=== PATIENT | female | born 1960 | race Caucasian/White ===

== ENCOUNTER 2020-10-02 14:18 | Outpatient (REF) | payer OTHER, SELFPAY | END 2020-10-02 14:19 | disposition home or self-care (01) | LOC: HO.LAB 14:18 | PROVIDERS: PCP Nurse Practitioner Family; Visit Provider Internal Medicine | DX: Z20.822 Contact with and (suspected) exposure to COVID-19 (principal) | CPT/HCPCS: C9803; U0003; U0005 ==

== ENCOUNTER 2020-12-05 12:36 | Outpatient (REF) | payer OTHER, SELFPAY ==
[2020-12-05 14:05] LABS: Appearance Urine HAZY; Color Urine YELLOW; Glucose Urine UA 100 MG/DL (NEG); Leukocyte Esterase Urine NEG (NEG); Nitrite Urine NEG (NEG); Specific Gravity - Urine >= 1.030 (1.005-1.025); UACC Culture Trigger NO; Urine Blood 3+ (NEG); Urine Ketones 5 MG/DL (NEG); Urine Protein TRACE MG/DL (NEG-TRACE)
[2020-12-05 14:56] LABS: Squamous Epithelial Cell Urine TRACE /LPF
[2020-12-05 15:00] LABS: Bacteria Urine TRACE /LPF; Calcium Oxalate Crystals Urine TRACE /LPF; WBC Urine 0-2 /HPF (0-4)
== END 2020-12-05 12:37 | disposition home or self-care (01) ==
LOC: HO.HMGCLDS 12:36
PROVIDERS: PCP Nurse Practitioner Family; Visit Provider Nurse Practitioner Family
DX: R35.0 Frequency of micturition (principal)
CPT/HCPCS: 81001

== ENCOUNTER 2023-10-20 15:49 | Outpatient (AMB) | payer OTHER, SELFPAY ==
--- NOTE | 2023-10-20 15:52 | A.OFFPC_ITS ---
Vital Signs 10/20/23 16:13 Height 5 ft 1 in Weight 163 lb BMI 30.8 BP 142/90 H Blood Pressure Location Rt brachial Position Sitting Pulse 110 H Pulse Source Pulse Oximeter Pulse Oximetry (%) 97 Oxygen Delivery Method Room Air Intake Visit Reasons: OUTBOUND SALES SPECIALIST, requests a physical - see comment Intake Note: pt is here for new patient, establish care. requesting a physical Inspector Returned Materials Required: No Accompanied by: Self / Same As Patient Allergies Iodinated Contrast Media [IV CONTRAST] Allergy (Unknown, Verified 10/20/23 17:22) ANAPHYLAXIS morphine [MORPHINE] Allergy (Unknown, Verified 10/20/23 17:22) SEVERE ITCHING, hives contrast dye Allergy (Unknown, Uncoded 10/20/23 17:22) anaphylaxis ct dye Allergy (Unknown, Uncoded 10/20/23 17:22) rash Morphine Allergy (Unknown, Uncoded 10/20/23 17:22) itching Medication List - Last Reconciled 10/20/23 by DUONG Guerrero- alpha lipoic acid 200 mg PO DAILY cholecalciferol (vitamin D3) 25 mcg PO DAILY dapagliflozin propanediol (Farxiga) 5 mg PO DAILY 30 days flaxseed oil 1,000 mg PO DAILY multivitamin 1 tab PO DAILY omeprazole 20 mg PO DAILY semaglutide (Ozempic) 0.25 mg (0.368 mL) subcut QWEEK Tobacco use date assessed: 10/20/23 Dental Screening Dental Screen Date: 10/20/23 Did you have a dental visit in the last 12 months?: Yes Did you have a dental problem in the last 6 months where you did not have access to dental care?: No Was dental information given to patient?: Patient has dentist HPI OUTBOUND SALES SPECIALIST, requests a physical - see comment HPI Details New pt is here for a PE. Will order labs. Due for mammo, will order. Due for colon screen, was due in 2021, will refer to GI. Pt is a newly diagnosed diabetic. A1C in office today is 13.1. Due for microalbumin, will order. Denies polyuria, polydipsia, does report neuropathy. Pt denies any signs and symptoms of hypoglycemia and does know how to correct it. Will start farxiga 5mg and ozempic 0.25mg. Will also refer to endo. Due for eye exam, will refer. Will send meter and supplies, educated on bid testing. Pt has been smoking up to a pack a day since age 14. Will refer for low-dose CT. Will also start ARB and statin. 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[employer] Current occupational exposures/hazards: No Cognitive needs: No Hearing needs: No Vision needs: Yes Questionnaire PHQ-9 Over the last 2 weeks, how often have you been bothered by any of the following problems? 1. Little interest or pleasure in doing things: several days 2. Feeling down, depressed, or hopeless: several days 3. Trouble falling or staying asleep, or sleeping too much: more than half the days 4. Feeling tired or having little energy: several days 5. Poor appetite or overeating: not at all 6. Feeling bad about yourself - or that you are a failure or have let yourself or your family down: not at all 7. Trouble concentrating on things, such as reading the newspaper or watching television: not at all 8. Moving or speaking so slowly that other people could have noticed. Or the opposite - being so fidgety or restless that you have been moving around a lot more than usual: not at all 9. Thoughts that you would be better off or of hurting yourself in some way: not at all Total score: 5 Depression Screening Interpretation: Negative Depression Screening Done: Yes 12159 - PHQ-9 Billing: Yes Source: Developed by Drs. Rei Meier, My Barros, Puma Pichardo and colleagues, with an educational janet from [employer]. Thrive Questionnaire Date Thrive assessed: 10/20/23 I am a: Patient What is your living situation today?: I have a steady place to live Within the past 12 months, did the food you bought not last and you didn't have the money to get more?: Never true Within the past 12 months, did you worry whether your food would run out before you got money to buy more?: Never true Do you have trouble paying for medicines?: No Do you have trouble getting transportation to medical appointments?: No Do you have trouble paying your heating and electricity bill?: No Do you have trouble taking care of your child, family member or friend?: No Do you have trouble with day-to-day activities such as bathing, preparing meals, shopping, managing finances, etc.?: No Are you currently unemployed and looking for a job?: No Are you interested in more education?: No Please select the resources that you would like help with: None Currently or been in a relationship where the following occur: No concerns reported THRIVE Score: 0 AUDIT C Alcohol Use Questionnaire (AUDIT-C) 1. How often do you have a drink containing alcohol?: Never 3. How often do you have six or more drinks on one occasion?: Never Total Score: 0 Score Reviewed/Action Taken: Yes YARI-7 AMB Questionnaire YARI-7 Date YARI - 7 assessed: 10/20/23 Feeling nervous, anxious, or on edge: 0 = Not at all Not being able to stop or control worryin = Not at all Worrying too much about different things: 0 = Not at all Trouble relaxin = Not at all Being so restless that it is hard to sit still: 0 = Not at all Becoming easily annoyed or irritable: 0 = Not at all Feeling afraid as if something awful might happen: 0 = Not at all Total YARI-7 score (0-4 normal; 5-9 mild; 10-14 moderate; 15-21 severe): 0 Source: Developed by Drs. Rei Meier, Puma Fung and colleagues, with an educational janet from [employer]. YARI-7 Assessment Billing YARI-7 Assessment Tool: YARI-7 Assessment 07120 Review of Systems Const Denies chills and Denies fever(s) Eyes Denies blurry vision ENT Denies vertigo, Denies dizziness and Denies sore throat Card Denies chest pain at rest, Denies chest pain with activity, Denies diaphoresis, Denies dyspnea and Denies dyspnea on exertion Resp Denies cough, Denies dyspnea, Denies dyspnea on exertion and Denies wheezing GI Denies abdominal pain, Denies melena, Denies hematochezia, Denies constipation, Denies diarrhea and Denies loose stools Denies hematuria Musc Reports numbness and Reports tingling Skin/Breast Denies lesions Neuro Denies vertigo, Denies dizziness, Reports numbness and Reports tingling Psych Denies anxiety, Denies depression, Denies homicidal ideation, Denies suicidal ideation and Denies other (substance abuse) Aller/Immun Denies wheezing Physical exam (Primary Care) Vital Signs: Last Vital Signs Pulse 110 H 10/20/23 16:13 BP 142/90 H 10/20/23 16:13 Pulse Ox 97 10/20/23 16:13 Oxygen Delivery Method Room Air 10/20/23 16:13 BMI result Body Mass Index 30.8 Tobacco/Smoking Status: Tobacco use Status Tobacco use date assessed 10/20/23 10/20/23 16:02 Patient Tobacco Use Status Current everyday Tobacco 10/20/23 16:20 Tobacco use type Smokeless Tobacco 10/20/23 16:20 e-Cigarette/Vaping Use Never Used 10/20/23 16:19 PHQ-9: PHQ-9 Score PHQ-9: Total score 5 10/20/23 16:36 Depression Screening Interpretation: Negative Thrive Assessment: Date of Thrive Assessment Date Thrive assessed 10/20/23 10/20/23 16:02 Currently or been in a relationship where the following occur: No concerns reported Const General: cooperative Nutritional Appearance: well nourished Orientation/consciousness: patient oriented x3 HENMT Head: Yes normal to inspection, Yes normocephalic and Yes atraumatic Ears: TM's normal bilaterally Eyes General: appearance normal, both eyes and all related structures Alignment and Position: alignment normal and position normal Neck Neck: Yes normal visual inspection, Yes no lymphadenopathy and Yes supple Resp Other: lungs fairly clear Effort & Inspection: normal respiratory effort Cardio Rate: regular rate Rhythm: regular rhythm Heart sounds: S1 normal heart sound present, S2 normal heart sound present and no murmurs GI Palpation (GI): Soft to palpation and nontender Auscultation: normal bowel sounds Skin Rashes: no rashes Neuro General: patient oriented x3, moves all extremities, no focal motor deficits and deep tendon reflexes 2+ bilaterally Romberg Test: Negative Extrem Other: bilat feet: + sensation with use of monofilament, feet intact Psych Appearance: grossly normal Mental Status: mental status grossly normal Speech and movement: Normal speech and movement present Affect: normal affect Attitude: cooperative Thought process: Normal thought process present Thought content: Normal thought content present Insight: Good insight present (Psych) Judgement: Good judgement present (Psych) Results AMB Hemoglobin A1c AMB Hemoglobin A1c 13.1 % Last Edit by Dev Miguel CMA on 10/20/23 16 :35 Results Reviewed Results Reviewed: Laboratory Last Values Hgb A1c (Clinic) 13.1 % (4.0-6.0) H 10/20/23 16:34 Assessment and Plan Assessment & Plan (1) Newly diagnosed diabetes: Code(s): E11.9 - Type 2 diabetes mellitus without complications Plan: Starting farxiga and ozempic, referred to endo, sending meter and supplies. work on diet (2) Serrated adenoma of colon: Code(s): D12.6 - Benign neoplasm of colon, unspecified Plan: Referred to GI (3) Smoker: Code(s): F17.200 - Nicotine dependence, unspecified, uncomplicated Plan: Referred for low-dose CT Plan The patient agreed to the use of a medical office worker for this encounter. Scribed for DUONG Enamorado- by Daily Marinelli medical office worker, on 10/20/2023 at 16:35 EST. Orders: Orders AMB Hemoglobin A1c Today Z13.9 - Encounter for screening, unspecified Comprehensive [place]. Panel Fast Today E11.9 - Type 2 diabetes mellitus without complications TSH reflex Free T4 Today E11.9 - Type 2 diabetes mellitus without complications UA CC w/rflx Micro + Cult Today E11.9 - Type 2 diabetes mellitus without complications Lipid Panel Today E11.9 - Type 2 diabetes mellitus without complications Microalbumin, Random (w Creat) Today E11.9 - Type 2 diabetes mellitus without complications MM screening mammo BI Today Z12.31 - Encounter for screening mammogram for malignant neoplasm of breast Complete Blood Count Auto Diff Today E11.9 - Type 2 diabetes mellitus without complications Referrals Gastroenterology Referral D12.6 - Benign neoplasm of colon, unspecified Endocrinology Referral E11.9 - Type 2 diabetes mellitus without complications Ophthalmology Referral E11.9 - Type 2 diabetes mellitus without complications Lung Cancer Screening Referral F17.200 - Nicotine dependence, unspecified, uncomplicated Medications: New dapagliflozin propanediol (Farxiga) 5 mg PO DAILY 30 days 30 tabs 3RF losartan 25 mg PO DAILY 90 days 90 tabs 0RF atorvastatin 20 mg PO BEDTIME 90 tabs 0RF semaglutide (Ozempic) for 4 weeks 0.25 mg (0.368 mL) subcut QWEEK 3 mL 0RF atorvastatin 20 mg PO BEDTIME 90 tabs 0RF Coding Level of Care Code Est Pt Level 3 (28283) New Pt Prev Care 40-64y(95997) Diagnoses Newly diagnosed diabetes E11.9 Serrated adenoma of colon D12.6 Smoker F17.200 Additional Codes YARI-7 Assessment Billing - YARI-7 Assessment Tool: YARI-7 Assessment 67511 ([id number])
[2023-10-20 16:13] VITALS: BP 142/90; PULSE 110; O2SAT 97; BMI 30.8
== END 2023-10-20 17:04 | disposition home or self-care (01) ==
PROVIDERS: PCP Nurse Practitioner Family; Visit Provider Nurse Practitioner Family
DX: Z00.00 Encounter for general adult medical examination without abnormal findings (principal); D12.6 Benign neoplasm of colon, unspecified; E11.9 Type 2 diabetes mellitus without complications; F17.200 Nicotine dependence, unspecified, uncomplicated
CPT/HCPCS: 83036; 99213; 99396

== ENCOUNTER 2023-10-22 08:58 | Outpatient (REF) | payer OTHER, SELFPAY ==
[2023-10-22 10:09] LABS: MANUAL DIFF FLAG NO
[2023-10-22 10:15] LABS: Basophils Absolute Auto 0.1 X10*3/uL (0.0-0.2); Basophils Percent Auto 0.7 % (0-2); Eosinophils Absolute Auto 0.1 X10*3/uL (0.0-0.4); Eosinophils Percent Auto 1.3 % (0-4); Hematocrit 45.8 % (37.0-47.0); Hemoglobin 16.2 g/dl (12.0-16.0); Imm Gran Abs Auto 0.04 X10*3/uL (0.00-0.03); Imm Gran Pct Auto 0.4 % (0.0-0.4); Lymphocytes Absolute Auto 3.6 X10*3/uL (1.2-4.9); Lymphocytes Percent Auto 39.8 % (20-40); Mean Corpuscular HGB Conc 35.4 g/dl (31.0-35.0); Mean Corpuscular Volume 90.5 fL (80.0-98.0); Mean Platelet Volume 10.1 fL (9.4-12.3); Monocytes Absolute Auto 0.6 X10*3/uL (0.1-1.2); Neutrophils Absolute Auto 4.7 x10*3/uL (2.0-8.3); Neutrophils Percent Auto 51.8 % (45-73); Platelet Count 261 X10*3/uL (160-400); Red Blood Count 5.06 X10*6/uL (4.20-5.50); Red Cell Distribution Width 12.1 % (11.0-16.0); White Blood Count 9.1 X10*3/uL (4.8-10.8)
[2023-10-22 10:26] LABS: Appearance Urine Clear; Color Urine Yellow; Glucose Urine UA >=1000 mg/dL (Negative); Leukocyte Esterase Urine Negative (Negative); Nitrite Urine Negative (Negative); PH 5.5 (5.0-9.0); Specific Gravity - Urine >= 1.030 (1.005-1.025); UMIC TRIGGER UACC YES; Urine Blood Negative (Negative); Urine Ketones 40 mg/dL (Negative); Urine Protein Negative (Neg-Trace)
[2023-10-22 10:33] LABS: Bacteria Urine None Seen (None Seen); Hyaline Casts Urine 0-2 /LPF (0-2); RBC Urine 0-2 /HPF (0-2); Squamous Epithelial Cell Urine 0-2 /HPF (0-2); WBC Urine 0-5 /HPF (0-5)
[2023-10-22 10:52] LABS: Alanine Aminotransferase 29 U/L (0-31); Albumin Level 4.3 g/dL (3.5-5.0); Alkaline Phosphatase 101 U/L (39-117); Anion Gap 12 (12-20); Aspartate Amino Transferase 19 U/L (5-31); Bilirubin Total 0.9 mg/dL (0.0-1.0); Blood Urea Nitrogen 15 mg/dL (9-16); Calcium 9.6 mg/dL (8.4-10.2); Carbon Dioxide 28 mmol/L (22-29); Chloride 101 mmol/L (96-108); Cholesterol 289 mg/dL (<200); Estimated Glomerular Filt Rate > 60; Glucose Fasting 353 mg/dL (60-99); HDL Cholesterol 51 mg/dL (>40); LDL Cholesterol Calculated 165 mg/dL (<100); Potassium 3.6 mmol/L (3.3-5.1); Sodium 137 mmol/L (135-145); Total Protein 7.1 g/dL (6.5-8.0); Triglycerides 368 mg/dL (<150)
[2023-10-22 10:57] LABS: Creatinine Urine 124.58 mg/dL; Microalbum/Creatinine Ratio Ur 19.2 ug/mg cr (<30); TSH reflex Free T4 0.73 uIU/mL (0.32-4.0)
== END 2023-10-22 08:59 | disposition home or self-care (01) ==
LOC: HO.HMGCLDS 08:58
PROVIDERS: PCP Nurse Practitioner Family; Visit Provider Nurse Practitioner Family
DX: E11.9 Type 2 diabetes mellitus without complications (principal)
CPT/HCPCS: 36415; 80053; 80061; 81001; 81003; 82043; 82570; 84443; 85025

== ENCOUNTER 2023-10-23 13:51 | Outpatient (AMB) | payer OTHER, SELFPAY ==
--- NOTE | 2023-10-23 13:53 | A.OFFVIS_ITS ---
Vital Signs 10/23/23 13:56 Height 5 ft 1 in Weight 163 lb 2.273 oz BMI 30.8 BP 118/78 Blood Pressure Location Rt brachial Position Sitting Pulse 72 Pulse Source Pulse Oximeter Intake Visit Reasons: Type 2 diabetes Intake Note: NEW Patient presents today to establish treatment for Newly Diagnosed Diabetes Mellitus: Last Diabetic eye exam was on: DUE Last Podiatry exam was on: Does not see a Hog Tender Most recent HbA1c: 13.1%, 10/22/2023 Random Glucose- 291 mg/dL, Today Shook Splicer Required: No Accompanied by: Self / Same As Patient Allergies Iodinated Contrast Media [IV CONTRAST] Allergy (Unknown, Verified 10/23/23 13:54) ANAPHYLAXIS morphine [MORPHINE] Allergy (Unknown, Verified 10/23/23 13:54) SEVERE ITCHING, hives contrast dye Allergy (Unknown, Uncoded 10/23/23 13:54) anaphylaxis ct dye Allergy (Unknown, Uncoded 10/23/23 13:54) rash Morphine Allergy (Unknown, Uncoded 10/23/23 13:54) itching Medication List - Last Reconciled 10/23/23 by Heather Campos MD alpha lipoic acid 200 mg PO DAILY atorvastatin 20 mg PO BEDTIME cholecalciferol (vitamin D3) 25 mcg PO DAILY flaxseed oil 1,000 mg PO DAILY FreeStyle Lite Meter (blood-glucose meter) Test blood sugar once a day NS FreeStyle Lite Strips (blood sugar diagnostic) Test blood sugar once a day NS FreeStyle Lite Strips (blood sugar diagnostic) check fasting once daily NS lancets (FreeStyle Lancets) Test blood sugar once a day losartan 25 mg PO DAILY 90 days metformin ER 2,000 mg (4 x 500 mg) PO DAILY 12 weeks multivitamin 1 tab PO DAILY omeprazole 20 mg PO DAILY ondansetron HCl 4 mg PO Q8H 30 days Ozempic (semaglutide) 0.25 mg (0.368 mL) subcut QWEEK NS HPI Comments Details: This is a 63 year old female with newly diagnosed diabetes presenting for consultation Medical history: GERD on PPI Seen by PCP 10/20/23 at which time her hbA1C is 13.1%. She was prescribed farxiga and ozempic 0.25mg daily. Insurance issue so standard metformin ordered at 1000mg twice daily. losartan and atorvastatin sent and filled. Freestyle glucometer and supplies sent. Glucometer and lancets covered, strips $100. So hasnt started medications or blood glucose testinig Micro/macrovascular: Reports bilateral foot uncomfortable tingling. alb/cr (-). LDL 165. No known CAD Extensive family history of type 2 diabetes ROS CONSTITUTIONAL: Denies weight loss, fever and chills. HEENT: Denies changes in vision and hearing. RESPIRATORY: Denies SOB and cough. CV: Denies palpitations and CP GI: Denies abdominal pain, nausea, vomiting and diarrhea. : Denies dysuria and urinary frequency. MSK: Denies new myalgia and joint pain. SKIN: Denies rash and pruritus. NEUROLOGICAL: see HPI PSYCHIATRIC: Denies recent changes in mood. PHYSICAL EXAM: GENERAL: Alert and oriented x 3. NAD EYES: EOMI. Anicteric. HENT: Moist mucous membranes. No scleral icterus. No cervical lymphadenopathy. LUNGS: Clear to auscultation bilaterally. CARDIOVASCULAR: Regular rate and rhythm. No murmur. No JVD. ABDOMEN: Soft, non-tender +bs EXTREMITIES: No edema. Non-tender. SKIN: No rashes or lesions. Warm. NEUROLOGIC: No focal neurological deficits. CN II-XII grossly intact PSYCHIATRIC: Cooperative. Appropriate mood and affect [facility] Medical History Squamous cell carcinoma Cervical radiculopathy Surgical History Hx laparoscopic cholecystectomy Hx of section Family History Mother No problems noted. 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[place] Current occupational exposures/hazards: No Cognitive needs: No Hearing needs: No Vision needs: Yes Physical Exam Vital Signs: Last Vital Signs Pulse 72 10/23/23 13:56 BP 118/78 10/23/23 13:56 BMI result Body Mass Index 30.8 Assessment & Plan Assessment & Plan (1) Diabetes mellitus with hyperglycemia: Code(s): E11.65 - Type 2 diabetes mellitus with hyperglycemia Category: Medical Qualifiers: Diabetes mellitus type: type 2 Diabetes mellitus terminal operations manager insulin use: unspecified terminal operations manager insulin use status Qualified Code(s): E11.65 - Type 2 diabetes mellitus with hyperglycemia Plan: Newly diagnosed diabetes. She suspects she developed this over the course of the past few years she has been eating a lot of sweets. She will try to cut out sugar Ordered metformin 500 xr. Ramp up x 4 weeks Start ozempic once approved Strips recent for once daily checking. She will schedule eye exam She will return in 4 weeks with fasting readings or earlier as needed Medications: New FreeStyle Lite Strips (blood sugar diagnostic) check fasting once daily 100 ea 3RF NS E11.9 - Type 2 diabetes mellitus without complications ondansetron HCl 4 mg PO Q8H 30 days 90 tabs 3RF metformin ER Take 1 tab oral once daily for 1 week then increase to 2 tab oral once daily for one week then take 3 tab oral once daily for one week then increase to 4 tab oral once daily 2,000 mg (4 x 500 mg) PO DAILY 12 weeks 360 tabs 3RF E11.9 - Type 2 diabetes mellitus without complications Ozempic (semaglutide) for 4 weeks 0.25 mg (0.368 mL) subcut QWEEK 3 mL 1RF NS E11.9 - Type 2 diabetes mellitus without complications Discontinued dapagliflozin propanediol (Farxiga) Discontinued Reason: Doctor's Order 5 mg PO DAILY 30 days 30 tabs 3RF semaglutide (Ozempic) for 4 weeks Discontinued Reason: Doctor's Order 0.25 mg (0.368 mL) subcut QWEEK 3 mL 0RF metformin start half tab bid x 10 days Discontinued Reason: Doctor's Order 1,000 mg PO BID 90 days 180 tabs 0RF Coding Level of Care Code New Pt Level 5 (28087) Diagnoses Type 2 diabetes mellitus with hyperglycemia, unspecified whether terminal operations manager insulin use E11.65 Diabetes mellitus type: type 2 Diabetes mellitus detention insulin use: unspecified detention insulin use status
[2023-10-23 13:56] VITALS: BP 118/78; PULSE 72; BMI 30.8
[2023-10-23 14:09] LABS: Glucose, Whole Blood 291 mg/dL (60-115)
== END 2023-10-23 14:50 | disposition home or self-care (01) ==
PROVIDERS: PCP Nurse Practitioner Family; Visit Provider Internal Medicine
DX: E11.65 Type 2 diabetes mellitus with hyperglycemia (principal)
CPT/HCPCS: 99204

== ENCOUNTER → 2023-10-23 13:51 | Outpatient (BNVA) | payer OTHER, SELFPAY | PROVIDERS: PCP Nurse Practitioner Family; Visit Provider Internal Medicine | DX: E11.65 Type 2 diabetes mellitus with hyperglycemia (principal) | CPT/HCPCS: 82947 ==

== ENCOUNTER 2023-11-20 08:27 | Outpatient (AMB) | payer OTHER, SELFPAY ==
--- NOTE | 2023-11-20 08:28 | A.OFFVIS_ITS ---
Vital Signs 11/20/23 08:29 Height 5 ft 1 in Weight 152 lb 1.903 oz BMI 28.7 BP 116/68 Blood Pressure Location Rt brachial Pulse 106 H Pulse Source Pulse Oximeter Intake Visit Reasons: T2DM/CONFIRMED Intake Note: NEW Patient presents today to establish treatment for Newly Diagnosed Diabetes Mellitus: Last Diabetic eye exam was on: DUE Last Podiatry exam was on: Does not see a Health Program Director Most recent HbA1c: 13.1%, 10/22/2023 Random Glucose- 143 mg/dL, Today Surgical Dressing Maker Required: No Accompanied by: Self / Same As Patient Allergies Iodinated Contrast Media [IV CONTRAST] Allergy (Unknown, Verified 10/23/23 13:54) ANAPHYLAXIS morphine [MORPHINE] Allergy (Unknown, Verified 10/23/23 13:54) SEVERE ITCHING, hives contrast dye Allergy (Unknown, Uncoded 10/23/23 13:54) anaphylaxis ct dye Allergy (Unknown, Uncoded 10/23/23 13:54) rash Morphine Allergy (Unknown, Uncoded 10/23/23 13:54) itching HPI Comments Details: This is a 63 year old female presenting for diabetes follow up Medical history: GERD on PPI Seen by PCP 10/20/23 at which time her hbA1C is 13.1%. Current prescriptions: Ozempic 0.25mg weekly, metformin 2000mg ([id number]) daily - taking 500mg daily. She was prescribed actos and glipizide but did not start them. With dietary changes, the ozempic and just one metformin daily her average fasting blood glucose for the past two weeks is 136 with range 113-160. She feels great, has lost 11 pounds. The metformin, even at just 500mg daily is giving her frequent diarrhea. She is testing once daily with freestyle lite. Micro/macrovascular: Reports bilateral foot uncomfortable tingling. alb/cr (-). On statin, ARB Extensive family history of type 2 diabetes ROS CONSTITUTIONAL: Denies weight loss, fever and chills. HEENT: Denies changes in vision and hearing. RESPIRATORY: Denies SOB and cough. CV: Denies palpitations and CP GI: see HPI : Denies dysuria and urinary frequency. MSK: Denies new myalgia and joint pain. SKIN: Denies rash and pruritus. NEUROLOGICAL: see HPI PSYCHIATRIC: Denies recent changes in mood. PHYSICAL EXAM: GENERAL: Alert and oriented x 3. NAD EYES: EOMI. Anicteric. HENT: Moist mucous membranes. No scleral icterus. No cervical lymphadenopathy. LUNGS: Clear to auscultation bilaterally. CARDIOVASCULAR: Regular rate and rhythm. No murmur. No JVD. ABDOMEN: Soft, non-tender +bs EXTREMITIES: No edema. Non-tender. SKIN: No rashes or lesions. Warm. NEUROLOGIC: No focal neurological deficits. CN II-XII grossly intact PSYCHIATRIC: Cooperative. Appropriate mood and affect [facility] Medical History (Updated 11/13/23 @ 13:45 by Nirali Lawson PA-C) Diabetes mellitus with hyperglycemia Nicotine dependence, cigarettes, uncomplicated Cervical radiculopathy Surgical History (Updated 11/13/23 @ 13:45 by Nirali Lawson PA-C) History of squamous cell carcinoma excision History of laparoscopic cholecystectomy History of History of colonoscopy Family History Mother No problems noted. 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[employer] Current occupational exposures/hazards: No Cognitive needs: No Hearing needs: No Vision needs: Yes Physical Exam Vital Signs: BMI result Body Mass Index 28.7 Assessment & Plan Assessment & Plan (1) Diabetes mellitus with hyperglycemia: Code(s): E11.65 - Type 2 diabetes mellitus with hyperglycemia Category: Medical Qualifiers: Diabetes mellitus type: type 2 Diabetes mellitus usp insulin use: unspecified vermin exterminator insulin use status Qualified Code(s): E11.65 - Type 2 diabetes mellitus with hyperglycemia Plan: Discussed with patient that her fasting blood glucose is near goal. She will increase ozempic to 0.5mg weekly, next dose friday. She can stop metformin at that time. If glucose levels rise would plan on starting Actos. She will follow up in two months for A1C. She was congratulated on interim improvement Medications: New pen needle, diabetic (BD Barbara 2nd Gen Pen Needle) As directed 100 ea 0RF Changed From Ozempic (semaglutide) for 4 weeks 0.25 mg (0.368 mL) subcut QWEEK 3 mL 1RF NS E11.9 - Type 2 diabetes mellitus without complications To Ozempic (semaglutide) 0.5 mg (0.736 mL) subcut QWEEK 9 mL 3RF NS E11.9 - Type 2 diabetes mellitus without complications Discontinued metformin ER Take 1 tab oral once daily for 1 week then increase to 2 tab oral once daily for one week then take 3 tab oral once daily for one week then increase to 4 tab oral once daily Discontinued Reason: Doctor's Order 2,000 mg (4 x 500 mg) PO DAILY 12 weeks 360 tabs 3RF E11.9 - Type 2 diabetes mellitus without complications glipizide ER Discontinued Reason: Doctor's Order 20 mg (2 x 10 mg) PO DAILY 180 tabs 3RF Coding Level of Care Code Est Pt Level 4 (05921) Diagnoses Type 2 diabetes mellitus with hyperglycemia, unspecified whether vermin exterminator insulin use E11.65 Diabetes mellitus type: type 2 Diabetes mellitus usp insulin use: unspecified usp insulin use status
[2023-11-20 08:29] VITALS: BP 116/68; PULSE 106; BMI 28.7
[2023-11-20 08:36] LABS: Glucose, Whole Blood 143 mg/dL (60-115)
== END 2023-11-20 09:00 | disposition home or self-care (01) ==
PROVIDERS: PCP Nurse Practitioner Family; Visit Provider Internal Medicine
DX: E11.65 Type 2 diabetes mellitus with hyperglycemia (principal)

== ENCOUNTER → 2023-11-20 08:27 | Outpatient (BNVA) | payer OTHER, SELFPAY | PROVIDERS: PCP Nurse Practitioner Family; Visit Provider Internal Medicine | DX: E11.65 Type 2 diabetes mellitus with hyperglycemia (principal); Z79.85 Long-term (current) use of injectable non-insulin antidiabetic drugs | CPT/HCPCS: 82947 ==

== ENCOUNTER 2023-12-12 09:54 | Outpatient (AMB) | payer OTHER, SELFPAY ==
--- NOTE | 2023-12-12 08:29 | A.OFFVIS_ITS ---
Intake Visit Reasons: Current Smoker Allergies Iodinated Contrast Media [IV CONTRAST] Allergy (Unknown, Verified 10/23/23 13: 54) ANAPHYLAXIS morphine [MORPHINE] Allergy (Unknown, Verified 10/23/23 13:54) SEVERE ITCHING, hives contrast dye Allergy (Unknown, Uncoded 10/23/23 13:54) anaphylaxis ct dye Allergy (Unknown, Uncoded 10/23/23 13:54) rash Morphine Allergy (Unknown, Uncoded 10/23/23 13:54) itching HPI HPI Current Smoker: Details: Initial visit for this 63yo smoker with a 20PYH. Patient started smoking at age 18 for 45 years at 1/2ppd. Reports being more of a social smoker. . Denies marijuana use. Denies second hand smoke exposure. Denies exposure to chemicals or substances like asbestos. . Denies known family history of lung cancer. Reports personal history of skin cancer - SCC. Followed by Derm. Denies chest CT in last year. . Denies recent travel outside the [place]. Denies recent respiratory illness or recent hospitalization for respiratory issues. Admits testing positive for COVID. Admits receiving COVID Vaccine. x 4. . Denies fever, chills, new/worsening cough, hemoptysis, hoarseness or dysphagia. Denies significant chest pain, significant dyspnea or unintentional weight loss. Patient Lung Cancer Screening Questionnaire reviewed with patient by provider. . Shared Decision Making Completed. Patient meets criteria. Discussed in detail with patient, the risk vs benefit of LDCT screening. Patient consents to proceed with scan. Discussed smoking cessation. [facility] Medical History (Updated 12/12/23 @ 10:06 by Nirali Laswon PA-C) Diabetes mellitus with hyperglycemia Nicotine dependence, cigarettes, uncomplicated Cervical radiculopathy Surgical History (Updated 11/13/23 @ 13:45 by Nirali Lawson PA-C) History of squamous cell carcinoma excision History of laparoscopic cholecystectomy History of History of colonoscopy Family History Mother No problems noted. Father Heart disease Diabetes Social History (Updated 12/12/23 @ 10:06 by Nirali Lawson PA-C) Housing: House Alcohol intake: never Patient Tobacco Use Status: Current everyday Tobacco user Tobacco use type: Cigarette Years Smoked: (onset 18yo, 1/2ppd x 45yrs, 20pyh) e-Cigarette/Vaping Use: Never Used Second Hand Smoke Exposure: No service: No Current occupational status: employed Current occupation: RN @ [employer] Current occupational exposures/hazards: No Cognitive needs: No Hearing needs: No Vision needs: Yes Assessment & Plan Assessment & Plan (1) Nicotine dependence, cigarettes, uncomplicated: Comment: (onset 18yo, 1/2ppd x 45yrs, 20pyh) Code(s): F17.210 - Nicotine dependence, cigarettes, uncomplicated Category: Medical Plan: - SDM visit completed today in office. - Patient meets criteria for LDCT for lung cancer screening purposes and is asymptomatic. - Smoking cessation counseling offered. Patients can always call [phone]. - Will arrange for a LDCT scan of the chest for screening purposes at [facility]. - Risks, benefits, and alternatives were discussed in detail and the patient agrees to proceed. - Risks discussed include but are not limited to: radiation exposure, anxiety during testing and while awaiting results, false negatives, false positives and possibility of additional intervention such as further imaging or surgical procedures for benign disease. - Benefits are obviously detection of lung cancer at an early stage which can lead to improved outcomes. - Discussed the importance of screening program compliance with adherence to yearly LDCT scan as scheduled - or sooner interval scans for personalized screening regimen. - Discussed follow up plan. Our office will send a letter discussing results and if needed set up phone call and office visit based on CT findings. - Patient educated on results categorization and the management decisions for suspicious findings potentially found on the screening LDCT scan. Any patient with a Lung RADS score of 3 or 4 will be reviewed by a multidisciplinary team at [facility] to form a plan of action in regards to scan findings. - If further work up is warranted for a suspicious lung finding this will be followed by the Lung Cancer Screening program in conjunction with the Thoracic Surgery Department at [facility]. - A copy of the office note and LDCT will be sent to the patient's PCP - as well as documentation on any associated further plans of care. - Incidental findings on LDCT are the PCP's responsibility. These findings are indicated with an S finding on the LDCT Assessment. A note discussing the findings will be sent to the PCP who is then responsible for further management. - All questions answered.? Coding Level of Care Code Lung Cancer Screening G0296 Diagnoses Nicotine dependence, cigarettes, uncomplicated F17.210
== END 2023-12-12 10:10 | disposition home or self-care (01) ==
PROVIDERS: PCP Nurse Practitioner Family; Visit Provider Physician Assistant Medical
DX: F17.210 Nicotine dependence, cigarettes, uncomplicated (principal)
CPT/HCPCS: G0296

== ENCOUNTER 2023-12-12 10:06 | Outpatient (REF) | payer OTHER, SELFPAY ==
--- NOTE | ~2023-12-12 | CT_ITS ---
EXAMINATION: CT LOW-DOSE SCREENING CHEST WITHOUT CONTRAST CLINICAL INFORMATION: Nicotine dependence, cigarettes, uncomplicated. The patient is a current smoker with a 46 pack-year history of smoking. COMPARISON: None available. TECHNIQUE: Multidetector volumetric CT imaging of the chest is performed on a Siemens SOMATOM Definition scanner without contrast using low dose technique. Additional 2D coronal and sagittal reformatted images and axial 3D maximum intensity projection (MIP) images are generated on the CT workstation. This CT examination was performed using dose optimization techniques as appropriate, variously including the following: *Automated exposure control *Adjustment of mA and/or kV according to patient size (this includes techniques or standardized protocols for targeted exams where dose is matched to indication/reason for exam; i.e. extremities or head) *Use of iterative reconstruction technique TOTAL EXAM DLP: 50 mGy-cm. CTDIvol: 1.60 mGy. FINDINGS: PULMONARY NODULES: No suspicious pulmonary nodules. LUNGS: Lungs bilaterally symmetrically expanded. No focal lung nodule or mass. No effusion or pneumothorax. Central airways patent. MEDIASTINUM: No mediastinal, hilar or axillary adenopathy or free fluid collection. CORONARY ARTERY CALCIFICATION: None visualized on this study. THYROID GLAND: Unremarkable to the extent seen. CARDIOVASCULAR STRUCTURES: Aortic and heart size normal. No pericardial effusion. CHEST WALL/AXILLA: Unremarkable. UPPER ABDOMEN: Status post cholecystectomy. Hepatic cysts are present. OSSEOUS STRUCTURES: No suspicious focal findings. CT/CT lung screening IMPRESSION: No evidence of pulmonary malignancy. ASSESSMENT: 1. Lung-RADS Category 1: Negative. There are no nodules or there are definitely benign nodules. N/A 2. Lung-RADS Category S: Negative. There are no clinically significant or potentially clinically significant findings not related to the lungs requiring urgent additional evaluation. RECOMMENDATION: Continued routine annual low-dose CT lung screening in 1 year is recommended. An order for CT CHEST LOW DOSE CANCER SCREENING ([id number]) can be placed. Electronically signed by: Sarthak Bustillo MD 01/29/2024 02:10 PM [facility]
== END 2023-12-12 10:07 | disposition home or self-care (01) ==
LOC: HO.CT 10:06
PROVIDERS: PCP Nurse Practitioner Family; Visit Provider Physician Assistant Medical
DX: Z12.2 Encounter for screening for malignant neoplasm of respiratory organs (principal); F17.210 Nicotine dependence, cigarettes, uncomplicated
CPT/HCPCS: 71271; G0296

== ENCOUNTER 2024-01-21 08:24 | Outpatient (AMB) | payer OTHER, SELFPAY ==
--- NOTE | 2024-01-21 08:27 | A.OFFVIS_ITS ---
Vital Signs 01/21/24 08:32 Height 5 ft 1 in Weight 148 lb 9.465 oz BMI 28.1 BP 102/66 Blood Pressure Location Rt brachial Position Sitting Pulse 106 H Pulse Source Pulse Oximeter Intake Visit Reasons: DM/CONFIRMED Intake Note: Patient present today to follow up on Type 2 Diabetes Mellitus. Last Diabetic Eye exam: Due Last Podiatry Visit: Does not see a Fill Technician Random Glucose: 141 mg/dl HgA1C: 6.4% 01/21/24 Mailer Apprentice Required: No Accompanied by: Self / Same As Patient Allergies Iodinated Contrast Media [IV CONTRAST] Allergy (Unknown, Verified 01/21/24 08:32) ANAPHYLAXIS morphine [MORPHINE] Allergy (Unknown, Verified 01/21/24 08:32) SEVERE ITCHING, hives contrast dye Allergy (Unknown, Uncoded 01/21/24 08:32) anaphylaxis ct dye Allergy (Unknown, Uncoded 01/21/24 08:32) rash Morphine Allergy (Unknown, Uncoded 01/21/24 08:32) itching HPI Comments Details: This is a 63 year old female presenting for diabetes follow up Medical history: GERD on PPI Seen by PCP 10/20/23 at which time her hbA1C is 13.1%. She was seen here 2 months ago at which time her fasting blood glucose was 113-160. A1C today is 6.4% Current prescriptions: Ozempic 0.5mg weekly, stopped metformin due to diarrhea. She is testing once daily with freestyle lite. Does have constipation on the ozempic refractory to senna, colace and miralax Micro/macrovascular: Reports bilateral foot uncomfortable tingling. alb/cr (-). On statin, ARB Extensive family history of type 2 diabetes ROS CONSTITUTIONAL: Denies weight loss, fever and chills. HEENT: Denies changes in vision and hearing. RESPIRATORY: Denies SOB and cough. CV: Denies palpitations and CP GI: see HPI : Denies dysuria and urinary frequency. MSK: Denies new myalgia and joint pain. SKIN: Denies rash and pruritus. NEUROLOGICAL: see HPI PSYCHIATRIC: Denies recent changes in mood. PHYSICAL EXAM: GENERAL: Alert and oriented x 3. NAD EYES: EOMI. Anicteric. HENT: Moist mucous membranes. No scleral icterus. No cervical lymphadenopathy. LUNGS: Clear to auscultation bilaterally. CARDIOVASCULAR: Regular rate and rhythm. No murmur. No JVD. ABDOMEN: Soft, non-tender +bs EXTREMITIES: No edema. Non-tender. SKIN: No rashes or lesions. Warm. NEUROLOGIC: No focal neurological deficits. CN II-XII grossly intact PSYCHIATRIC: Cooperative. Appropriate mood and affect [facility] Medical History (Updated 01/21/24 @ 09:02 by Heather Campos MD) Diabetes mellitus with hyperglycemia Nicotine dependence, cigarettes, uncomplicated Cervical radiculopathy Surgical History History of squamous cell carcinoma excision History of laparoscopic cholecystectomy History of History of colonoscopy Family History Mother No problems noted. 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/hazards: No Cognitive needs: No Hearing needs: No Vision needs: Yes Physical Exam Vital Signs: Last Vital Signs Pulse 106 H 01/21/24 08:32 BP 102/66 01/21/24 08:32 BMI result Body Mass Index 28.1 Results AMB Hemoglobin A1c AMB Hemoglobin A1c 6.4 % Last Edit by SANTOSH Frankel on 01/21/24 08:47 Results Reviewed Results Reviewed: Laboratory Last Values Glucose (Clinic) 141 mg/dL (60-115) H 01/21/24 08:37 Assessment & Plan Assessment & Plan (1) Controlled type 2 diabetes mellitus: Code(s): E11.9 - Type 2 diabetes mellitus without complications Category: Medical Qualifiers: Diabetes mellitus complication status: without complication Diabetes mellitus buttermilk drier operator insulin use: without fdc use Qualified Code(s): E11.9 - Type 2 diabetes mellitus without complications Plan: continue current dose of ozempic congratulated on interval improvement and goal control Return in 3 months Orders: Orders AMB Hemoglobin A1c Today E11.65 - Type 2 diabetes mellitus with hyperglycemia Medications: New Linzess (linaclotide) 145 mcg PO DAILY 90 caps 3RF NS Discontinued pioglitazone (Actos) Discontinued Reason: Doctor's Order 30 mg PO DAILY 90 tabs 3RF Coding Level of Care Code Est Pt Level 4 (39931) Diagnoses Controlled type 2 diabetes mellitus without complication, without long-term current use of insulin E11.9 Diabetes mellitus complication status: without complication Diabetes mellitus buttermilk drier operator insulin use: without fdc use
[2024-01-21 08:32] VITALS: BP 102/66; PULSE 106; BMI 28.1
[2024-01-21 08:41] LABS: Glucose, Whole Blood 141 mg/dL (60-115)
== END 2024-01-21 09:02 | disposition home or self-care (01) ==
PROVIDERS: PCP Nurse Practitioner Family; Visit Provider Internal Medicine
DX: E11.9 Type 2 diabetes mellitus without complications (principal); E11.65 Type 2 diabetes mellitus with hyperglycemia

== ENCOUNTER → 2024-01-21 08:24 | Outpatient (BNVA) | payer OTHER, SELFPAY | PROVIDERS: PCP Nurse Practitioner Family; Visit Provider Internal Medicine | DX: E11.9 Type 2 diabetes mellitus without complications (principal); Z79.85 Long-term (current) use of injectable non-insulin antidiabetic drugs | CPT/HCPCS: 82947; 83036 ==

== ENCOUNTER 2024-02-19 12:59 | Outpatient (REF) | payer OTHER, SELFPAY ==
[2024-02-19 15:57] LABS: MANUAL DIFF FLAG NO
[2024-02-19 16:04] LABS: Appearance Urine Clear; Color Urine Dark Yellow; Glucose Urine UA Negative (Negative); Leukocyte Esterase Urine Negative (Negative); Nitrite Urine Negative (Negative); PH 5.5 (5.0-9.0); Specific Gravity - Urine 1.025 (1.005-1.025); Urine Blood Negative (Negative); Urine Ketones Trace mg/dL (Negative); Urine Protein Negative (Neg-Trace)
[2024-02-19 16:10] LABS: Basophils Absolute Auto 0.1 X10*3/uL (0.0-0.2); Basophils Percent Auto 0.7 % (0-2); Eosinophils Absolute Auto 0.2 X10*3/uL (0.0-0.4); Eosinophils Percent Auto 1.5 % (0-4); Hematocrit 43.2 % (37.0-47.0); Hemoglobin 14.8 g/dl (12.0-16.0); Imm Gran Abs Auto 0.03 X10*3/uL (0.00-0.03); Imm Gran Pct Auto 0.3 % (0.0-0.4); Lymphocytes Absolute Auto 4.5 X10*3/uL (1.2-4.9); Lymphocytes Percent Auto 45.5 % (20-40); Mean Corpuscular HGB Conc 34.3 g/dl (31.0-35.0); Mean Corpuscular Volume 93.5 fL (80.0-98.0); Mean Platelet Volume 10.2 fL (9.4-12.3); Monocytes Absolute Auto 0.5 X10*3/uL (0.1-1.2); Monocytes Percent Auto 5.1 % (2-11); Neutrophils Absolute Auto 4.7 x10*3/uL (2.0-8.3); Neutrophils Percent Auto 46.9 % (45-73); Platelet Count 334 X10*3/uL (160-400); Red Blood Count 4.62 X10*6/uL (4.20-5.50); Red Cell Distribution Width 12.4 % (11.0-16.0); White Blood Count 9.9 X10*3/uL (4.8-10.8)
[2024-02-19 16:40] LABS: Creatinine Urine 220.44 mg/dL; Microalbum/Creatinine Ratio Ur 11.3 ug/mg cr (<30)
[2024-02-19 16:43] LABS: Alanine Aminotransferase 32 U/L (0-31); Albumin Level 4.3 g/dL (3.5-5.0); Anion Gap 11 (12-20); Aspartate Amino Transferase 26 U/L (5-31); Bilirubin Total 0.8 mg/dL (0.0-1.0); Blood Urea Nitrogen 10 mg/dL (9-16); Carbon Dioxide 30 mmol/L (22-29); Chloride 104 mmol/L (96-108); Cholesterol 145 mg/dL (<200); Estimated Glomerular Filt Rate > 60; Glucose Fasting 138 mg/dL (60-99); HDL Cholesterol 47 mg/dL (>40); LDL Cholesterol Calculated 75 mg/dL (<100); Sodium 141 mmol/L (135-145); Total Protein 7.2 g/dL (6.5-8.0); Triglycerides 115 mg/dL (<150)
[2024-02-19 16:56] LABS: TSH reflex Free T4 0.55 uIU/mL (0.32-4.0); Vitamin D 25-OH Total 83.1 ng/mL (>30)
[2024-02-19 17:00] LABS: Alkaline Phosphatase 87 U/L (39-117)
== END 2024-02-19 13:00 | disposition home or self-care (01) ==
LOC: HO.HMGCLDS 12:59
PROVIDERS: PCP Nurse Practitioner Family; Visit Provider Nurse Practitioner Family
DX: E11.9 Type 2 diabetes mellitus without complications (principal)
CPT/HCPCS: 36415; 80053; 80061; 81003; 82043; 82306; 82570; 84443; 85025

== ENCOUNTER 2024-02-19 12:59 | Outpatient (AMB) | payer OTHER, SELFPAY ==
[2024-02-19 12:59] VITALS: BP 118/74; PULSE 105; O2SAT 97; BMI 28.0
--- NOTE | 2024-02-19 12:59 | A.OFFPC_ITS ---
Vital Signs 02/19/24 12:59 Height 5 ft 1 in Weight 148 lb BMI 28.0 BP 118/74 Blood Pressure Location Lt brachial Position Sitting Pulse 105 H Pulse Source Pulse Oximeter Pulse Oximetry (%) 97 Oxygen Delivery Method Room Air Intake Visit Reasons: 4 month follow up DM Intake Note: Pt is here today for 4 months follow up visit on DM. Allergies Iodinated Contrast Media [IV CONTRAST] Allergy (Unknown, Verified 02/19/24 13:39) ANAPHYLAXIS morphine [MORPHINE] Allergy (Unknown, Verified 02/19/24 13:39) SEVERE ITCHING, hives contrast dye Allergy (Unknown, Uncoded 02/19/24 13:39) anaphylaxis ct dye Allergy (Unknown, Uncoded 02/19/24 13:39) rash Morphine Allergy (Unknown, Uncoded 02/19/24 13:39) itching Medication List - Last Reconciled 02/19/24 by BEVERLY GuerreroP- alpha lipoic acid 200 mg PO DAILY atorvastatin 20 mg PO BEDTIME cholecalciferol (vitamin D3) 25 mcg PO DAILY flaxseed oil 1,000 mg PO DAILY FreeStyle Lite Meter (blood-glucose meter) Test blood sugar once a day NS FreeStyle Lite Strips (blood sugar diagnostic) Test blood sugar once a day NS FreeStyle Lite Strips (blood sugar diagnostic) check fasting once daily NS lancets (FreeStyle Lancets) Test blood sugar once a day Linzess (linaclotide) 145 mcg PO DAILY NS losartan 25 mg PO DAILY 90 days multivitamin 1 tab PO DAILY omeprazole 20 mg PO DAILY ondansetron HCl 4 mg PO Q8H 30 days Ozempic (semaglutide) 0.5 mg (0.736 mL) subcut QWEEK NS pen needle, diabetic (BD Barbara 2nd Gen Pen Needle) As directed Tobacco use date assessed: 02/19/24 Dental Screening Dental Screen Date: 02/19/24 Did you have a dental visit in the last 12 months?: Yes Did you have a dental problem in the last 6 months where you did not have access to dental care?: No Was dental information given to patient?: Patient has dentist HPI 4 month follow up DM HPI Details Chief Complaint Patient presents for a generalized follow-up visit. History of Present Illness The patient is a 63-year-old female presenting for generalized follow-up and health maintenance. She has a known history of Diabetes Mellitus and currently follows up with endocrinology for this condition. Last month's Hemoglobin A1c was recorded at 6.4, indicating good control of her diabetes. She reports significant weight loss and improvements in her diet, which contribute to her better overall feeling. The patient also experiences neuropathy, particularly noticeable at night. Previous efforts regarding diabetes management, including dietary adjustments and endocrinology consultations, will continue. As part of routine screenings, a colonoscopy referral has been placed, and she is scheduled for an appointment in February. The patient also plans to arrange her own ophthalmology appointment related to her diabetes management. Social History - Reports improved nutritional intake wi th healthier dietary choices. - Engages in weight management, siri g in notable weight loss. Health Maintenance - A low-dose CAT scan was recently perfo rmed. - Referral placed for colonoscopy, with an appointment scheduled in February. - Ophthalmology (eye exam) appointment t o be arranged by the patient. Review of Systems - Neurological: Reports neuropathy at [facility]. Physical Exam General: Cooperative, healthy appearing, comfortable, no acute distress and well developed Orientation: Patient oriented x3 Limitations: No limitations Head: Normal to inspection Ears: Hearing grossly normal bilaterally Nose: Normal external nose present Face and sinus: Normal facial exam Eyes: Appearance normal, both eyes and all related structures Neck: Normal visual inspection and Yes full ROM Respiratory: Normal respiratory effort and able to speak in complete sentences. Clear to auscultation bilaterally Cardiovascular: Regular rate and rhythm. Normal S1 and S2 GI: Normal to inspection. Soft to palpation and nontender Skin: No rashes or lesions noted Neuro: Patient oriented x3 Extremities: Normal to inspection, no edema, feet intact, reports some neuropathy at night Results - Labs: Hemoglobin A1c: 6.4 (from last m onth). - Tests: Recent low-dose CAT scan comple sharron. Plan - Continue with diabetes management unde r endocrinology, with an emphasis on maintaining dietary changes and weight management. - Prescription for low-dose gabapentin t o address neuropathy symptoms at night. - Schedule and attend upcoming colonosco py appointment in February. - Patient to arrange an ophthalmology vi sit for eye examination. Patient was informed and verbally consented to the use of an ambient scribe for clinic note documentation during this visit. Discussion Notes During the visit, I discussed with the patient her current diabetes management plan and the importance of continuing her healthy lifestyle changes, such as improved diet and weight management. We agreed that maintaining these changes is crucial for diabetes control, as evidenced by her recent A1c result of 6.4. We also discussed addressing her neuropathy symptoms, for which I have prescribed a low dose of gabapentin. The patient expressed understanding of the treatment plan and potential side effects. We also covered the importance of keeping up with health screenings, including the scheduled colonoscopy and the need for regular eye exams due to her diabetes. The patient verbally consented to the plan outlined and is aware of the follow-up precautions. Patient Instructions - Continue prescribed dietary changes an d monitor weight management strategies. - Take prescribed gabapentin as directed to manage neuropathy symptoms. - Follow-up with the supervisor cellars as scheduled for diabetes care. - Call to arrange an eye exam with an op hthalmologist. - Prepare for the scheduled colonoscopy in February and follow all pre-procedure instructions. [facility] Medical History (Updated 02/19/24 @ 13:50 by Booker Ulrich, [facility]) Diabetes mellitus with hyperglycemia Nicotine dependence, cigarettes, uncomplicated Cervical radiculopathy Surgical History History of squamous cell carcinoma excision History of laparoscopic cholecystectomy History of History of colonoscopy Family History Mother No problems noted. 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[employer] Current occupational exposures/hazards: No Cognitive needs: No Hearing needs: No Vision needs: Yes Questionnaire Thrive Questionnaire Date Thrive assessed: 02/19/24 I am a: Patient What is your living situation today?: I have a steady place to live Within the past 12 months, did the food you bought not last and you didn't have the money to get more?: Never true Within the past 12 months, did you worry whether your food would run out before you got money to buy more?: Never true Do you have trouble paying for medicines?: No Do you have trouble getting transportation to medical appointments?: No Do you have trouble paying your heating and electricity bill?: No Do you have trouble taking care of your child, family member or friend?: No Do you have trouble with day-to-day activities such as bathing, preparing meals, shopping, managing finances, etc.?: No Are you currently unemployed and looking for a job?: No Are you interested in more education?: No Please select the resources that you would like help with: None Currently or been in a relationship where the following occur: No concerns reported THRIVE Score: 0 YARI-7 AMB Questionnaire YARI-7 Date YARI - 7 assessed: 10/20/23 Source: Developed by Drs. Rei Meier, My Barros, Puma Pichardo and colleagues, with an educational janet from [employer]. Physical exam (Primary Care) Vital Signs: Last Vital Signs Pulse 105 H 02/19/24 12:59 BP 118/74 02/19/24 12:59 Pulse Ox 97 02/19/24 12:59 Oxygen Delivery Method Room Air 02/19/24 12:59 BMI result Body Mass Index 28.0 Tobacco/Smoking Status: Tobacco use Status Tobacco use date assessed 02/19/24 02/19/24 13:00 Patient Tobacco Use Status Current everyday Tobacco 02/19/24 13:00 Tobacco use type Cigarette 02/19/24 13:00 e-Cigarette/Vaping Use Never Used 02/19/24 13:00 Thrive Assessment: Date of Thrive Assessment Date Thrive assessed 02/19/24 02/19/24 13:01 Currently or been in a relationship where the following occur: No concerns reported Coding Level of Care Code Est Pt Level 3 (63955) Diagnoses Controlled type 2 diabetes mellitus without complication, without long-term current use of insulin E11.9 Diabetes mellitus fci insulin use: without ferry terminal agent use Diabetes mellitus complication status: without complication Neuropathy G62.9 Assessment & Plan Assessment & Plan (1) Controlled type 2 diabetes mellitus: Code(s): E11.9 - Type 2 diabetes mellitus without complications Category: Medical Qualifiers: Diabetes mellitus fci insulin use: without fci use Diabetes mellitus complication status: without complication Qualified Code(s): E11.9 - Type 2 diabetes mellitus without complications (2) Neuropathy: Code(s): G62.9 - Polyneuropathy, unspecified Category: Medical Plan . Orders: Orders TSH reflex Free T4 Today E11.9 - Type 2 diabetes mellitus without complications Vitamin D 25-OH Total Today E11.9 - Type 2 diabetes mellitus without complications MM screening mammo BI Today Z12.31 - Encounter for screening mammogram for malignant neoplasm of breast Complete Blood Count Auto Diff Today E11.9 - Type 2 diabetes mellitus without complications Comprehensive [place]. Panel Fast Today E11.9 - Type 2 diabetes mellitus without complications UA CC w/rflx Micro + Cult Today E11.9 - Type 2 diabetes mellitus without complications Lipid Panel Today E11.9 - Type 2 diabetes mellitus without complications Microalbumin, Random (w Creat) Today E11.9 - Type 2 diabetes mellitus without complications Medications: New gabapentin 100 mg PO BEDTIME 30 caps 2RF
== END 2024-02-19 14:46 | disposition home or self-care (01) ==
PROVIDERS: PCP Nurse Practitioner Family; Visit Provider Nurse Practitioner Family
DX: E11.9 Type 2 diabetes mellitus without complications (principal); G62.9 Polyneuropathy, unspecified

== ENCOUNTER 2024-03-02 10:22 | Outpatient (AMB) | payer OTHER, SELFPAY ==
[2024-03-02 10:24] VITALS: BP 128/72; PULSE 108; O2SAT 99; BMI 28.2
--- NOTE | 2024-03-02 10:24 | A.OFFVIS_ITS ---
Vital Signs 03/02/24 10:24 Height 5 ft 1 in Weight 149 lb 0.52 oz BMI 28.2 BP 128/72 Blood Pressure Location Rt brachial Position Sitting Pulse 108 H Pulse Source Pulse Oximeter Pulse Oximetry (%) 99 Oxygen Delivery Method Room Air Intake Visit Reasons: Colonoscopy screening Intake Note: EST PT NEW PROBLEM Reason; 5 YR RECALL. Prior hx of colo/egd? ' w/ Benjamin. Concerns/Questions? Pt states bowel movements are irregular w/ ozempic and linzess in mind. Allergies Iodinated Contrast Media [IV CONTRAST] Allergy (Unknown, Verified 03/02/24 10:25) ANAPHYLAXIS morphine [MORPHINE] Allergy (Unknown, Verified 03/02/24 10:25) SEVERE ITCHING, hives HPI HPI Colonoscopy screening: Details: 63 year old? female with past medical history of diabetes newly diagnosed, [facility] frequency is here today for pre colonoscopy screening.? Patient was sent to us by her PCP.? Last colonoscopy in March of 2018, sessile serrated polyp and colonoscopy and recommendations were made for colonoscopy to be repeated in [address] Alexander.? Patient denies any gastrointestinal symptoms in the past or at present.? However patient started Ozempic few months ago and has been having constipation. Demo Specialist started patient on Linzess to help her move her bowels. Patient reports that it helps but it does not feel like she empties her bowels completely. Patient admits that occasionally will cause diarrhea. Denies any personal or family history of gastrointestinal disease, colon polyps, or CRC.? Denies history of difficulty with sedation or anesthesia in the past.? Negative for history of sleep apnea.? Denies any history of cardiac, renal, pulmonary, or hepatic disease.?? No history of infectious? diseases like hepatitis A, B, C, HIV or tuberculosis.? Patient is not on any anticoagulation [facility] Medical History Diabetes mellitus with hyperglycemia Nicotine dependence, cigarettes, uncomplicated Cervical radiculopathy Surgical History History of squamous cell carcinoma excision History of laparoscopic cholecystectomy History of History of colonoscopy Family History Mother No problems noted. 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[employer] Current occupational exposures/hazards: No Cognitive needs: No Hearing needs: No Vision needs: Yes Review of Systems Const Denies weight gain and Denies weight loss ENT Reports no additional complaints, Denies dysphagia and Denies odynophagia Card Reports no additional complaints Resp Reports no additional complaints GI Denies abdominal pain, Denies belching, Denies melena, Denies bloating, Denies change in bowel habits, Reports constipation, Denies dysphagia, Denies excessive flatus, Denies dyspepsia, Denies heartburn, Denies diarrhea, Reports loose stools, Denies nausea, Denies odynophagia and Denies vomiting Reports no additional complaints Musc Reports no additional complaints Neuro Reports no additional complaints Psych Reports no additional complaints Endo Reports no additional complaints Physical Exam Vital Signs: Last Vital Signs Pulse 108 H 03/02/24 10:24 BP 128/72 03/02/24 10:24 Pulse Ox 99 03/02/24 10:24 Oxygen Delivery Method Room Air 03/02/24 10:24 BMI result Body Mass Index 28.2 Const General: healthy appearing, no acute distress and well developed Nutritional Appearance: well nourished Orientation/consciousness: patient oriented x3 Resp Effort & Inspection: normal respiratory effort, able to speak in complete sentences, no tracheal deviation and symmetric chest movement Auscultation: clear to auscultation bilaterally Cardio Rate: regular rate GI Inspection: Yes normal to inspection and No distended Palpation (GI): Soft to palpation, not firm, nontender and No hepatosplenomegaly present Auscultation: normal bowel sounds General: Yes no CVA tenderness Back/Spine/Pelvis Back: no CVA tenderness Skin General skin exam: elasticity normal, turgor normal and dry skin Neuro General: patient oriented x3 Psych Appearance: grossly normal Mental Status: mental status grossly normal Assessment & Plan Assessment & Plan (1) Screen for colon cancer: Code(s): Z12.11 - Encounter for screening for malignant neoplasm of colon Plan Patient denies any GI, cardiac or respiratory symptoms.? However patient does report occasional loose stool and constipation that patient is trying to regulate her bowels with Linzess. Since she was placed on Ozempic she has been suffering with constipation. Patient does admit that she is not drinking enough water. Denies any issues with anesthesia in the past.? Denies any history of sleep apnea.? No history infectious diseases in the past or present.? Not on any anticoagulation therapy.? No family or personal history of colon cancer or polyps.? Patient denies melena, hematochezia, unintentional weight loss or ribbon like stools.? Discussed at length the pre-procedure,? prep, diet & medications as well as what to expect prior, during and after the procedure.?? Stressed the importance of good bowel prep.? Patient is taking Ozempic on Sundays. Procedure can be booked on Friday so she will miss only 1 day of the medication. She will prep Friday. Recommended the use of Vaseline or Calmoseptine OTC & baby wipes with bowel movements to promote comfort.? ?Patient verbalizes understanding and agrees to plan of care.? She was given the opportunity to ask questions and all questions answered.? We will see her after the procedure.? Medications: New bisacodyl (Dulcolax (bisacodyl)) 10 mg (2 x 5 mg) PO BEDTIME 180 tabs 4RF polyethylene glycol 3350 (Miralax) As directed by gastroenterology department at [facility] 238 grams PO ONCE 238 grams 0RF Z12.11 - Encounter for screening for malignant neoplasm of colon Coding Level of Care Code New Pt Level 3 (40537) Diagnoses Screen for colon cancer Z12.11 Time Spent (min) 40 Comment 30 minutes spent with patient and additional 10 minutes spent reviewing her records
== END 2024-03-02 12:35 | disposition home or self-care (01) ==
PROVIDERS: PCP Nurse Practitioner Family; Visit Provider Nurse Practitioner Family
DX: Z01.818 Encounter for other preprocedural examination (principal); Z12.11 Encounter for screening for malignant neoplasm of colon; Z86.0101 Personal history of adenomatous and serrated colon polyps
CPT/HCPCS: 99202

== ENCOUNTER 2024-04-22 08:23 | Outpatient (AMB) | payer OTHER, SELFPAY ==
[2024-04-22 08:27] VITALS: BP 120/78; PULSE 97; O2SAT 97; BMI 28.7
--- NOTE | 2024-04-22 08:27 | A.OFFVIS_ITS ---
Vital Signs 04/22/24 08:27 Height 5 ft 1 in Weight 152 lb 1.903 oz BMI 28.7 BP 120/78 Blood Pressure Location Rt brachial Position Sitting Pulse 97 Pulse Source Pulse Oximeter Pulse Oximetry (%) 97 Oxygen Delivery Method Room Air Intake Visit Reasons: diabetes Intake Note: Patient presents today for a follow-up on Type 2 Diabetes Mellitus: Last Diabetic eye exam was on: DUE Last Podiatry exam was on: Patient does not see a Gun Stocker Most recent HbA1c: 5.5%, 04/22/2024 Random Glucose- 122 mg/dL, Today Parole Supervisor Required: No Accompanied by: Self / Same As Patient Allergies Iodinated Contrast Media [IV CONTRAST] Allergy (Unknown, Verified 04/22/24 0 8:29) ANAPHYLAXIS morphine [MORPHINE] Allergy (Unknown, Verified 04/22/24 08:29) SEVERE ITCHING, hives Medication List - Last Reconciled 04/22/24 by Heather Campos MD alpha lipoic acid 200 mg PO DAILY atorvastatin 20 mg PO BEDTIME bisacodyl (Dulcolax (bisacodyl)) 10 mg (2 x 5 mg) PO BEDTIME cholecalciferol (vitamin D3) 25 mcg PO DAILY flaxseed oil 1,000 mg PO DAILY FreeStyle Lite Meter (blood-glucose meter) Test blood sugar once a day NS FreeStyle Lite Strips (blood sugar diagnostic) check fasting once daily NS gabapentin 100 mg PO BEDTIME lancets (FreeStyle Lancets) Test blood sugar once a day Linzess (linaclotide) 145 mcg PO DAILY NS losartan 25 mg PO DAILY 90 days multivitamin 1 tab PO DAILY omeprazole 20 mg PO DAILY ondansetron HCl 4 mg PO Q8H 30 days Ozempic (semaglutide) 0.5 mg (0.736 mL) subcut QWEEK NS pen needle, diabetic (BD Barbara 2nd Gen Pen Needle) As directed polyethylene glycol 3350 (Miralax) 238 grams PO ONCE HPI Comments Details: This is a 63 year old female presenting for diabetes follow up Medical history: GERD on PPI Seen by PCP 10/20/23 at which time her hbA1C is 13.1%. A1C in December improved to 6.4%. Today POC A1C 5.5% Current prescriptions: Ozempic 0.5mg weekly, stopped metformin due to diarrhea. She is testing once daily with freestyle lite. Does have constipation on the ozempic refractory to senna, colace and miralax-linzess has softened the stools but still going too infrequently. Will double the dose Meter download reviewed. TGT 100%. 1x/day. range 130-154 with average 142 Micro/macrovascular: Reports bilateral foot uncomfortable tingling. alb/cr (-). On statin, ARB Extensive family history of type 2 diabetes ROS CONSTITUTIONAL: Denies weight loss, fever and chills. HEENT: Denies changes in vision and hearing. RESPIRATORY: Denies SOB and cough. CV: Denies palpitations and CP GI: see HPI : Denies dysuria and urinary frequency. MSK: Denies new myalgia and joint pain. SKIN: Denies rash and pruritus. NEUROLOGICAL: see HPI PSYCHIATRIC: Denies recent changes in mood. PHYSICAL EXAM: GENERAL: Alert and oriented x 3. NAD EYES: EOMI. Anicteric. HENT: Moist mucous membranes. No scleral icterus. No cervical lymphadenopathy. LUNGS: Clear to auscultation bilaterally. CARDIOVASCULAR: Regular rate and rhythm. No murmur. No JVD. ABDOMEN: Soft, non-tender +bs EXTREMITIES: No edema. Non-tender. SKIN: No rashes or lesions. Warm. NEUROLOGIC: No focal neurological deficits. CN II-XII grossly intact PSYCHIATRIC: Cooperative. Appropriate mood and affect [facility] Medical History (Updated 04/22/24 @ 09:03 by Heather Campos MD) Newly diagnosed diabetes Diabetes mellitus with hyperglycemia Nicotine dependence, cigarettes, uncomplicated Cervical radiculopathy Surgical History History of squamous cell carcinoma excision History of laparoscopic cholecystectomy History of History of colonoscopy Family History Mother No problems noted. 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/hazards: No Cognitive needs: No Hearing needs: No Vision needs: Yes Physical Exam Vital Signs: Last Vital Signs Pulse 97 04/22/24 08:27 Pulse Ox 97 04/22/24 08:27 Oxygen Delivery Method Room Air 04/22/24 08:27 BMI result Body Mass Index 28.7 Results AMB Hemoglobin A1c AMB Hemoglobin A1c 5.5 % Last Edit by SANTOSH Lindsay on 04/22/24 08:51 Results Reviewed Results Reviewed: Laboratory Last Values Glucose (Clinic) 122 mg/dL (60-115) H 04/22/24 08:37 Assessment & Plan Assessment & Plan (1) Controlled type 2 diabetes mellitus: Code(s): E11.9 - Type 2 diabetes mellitus without complications Category: Medical Qualifiers: Diabetes mellitus chcf insulin use: without termite control technician use Diabetes mellitus complication status: without complication Qualified Code(s): E11.9 - Type 2 diabetes mellitus without complications Plan: Doing great on ozempic 0.5mg weekly. Going to increase to 1mg weekly. Return in 3 months for A1C. Urged to make eye appt which is overdue Orders: Orders AMB Hemoglobin A1c Today E11.65 - Type 2 diabetes mellitus with hyperglycemia Medications: New Ozempic (semaglutide) 1 mg (0.75 mL) subcut QWEEK 9 mL 3RF NS E11.9 - Type 2 diabetes mellitus without complications Changed From Linzess (linaclotide) 145 mcg PO DAILY 90 caps 3RF NS To Linzess (linaclotide) 290 mcg (2 x 145 mcg) PO DAILY 90 caps 3RF NS Discontinued Ozempic (semaglutide) Discontinued Reason: Doctor's Order 0.5 mg (0.736 mL) subcut QWEEK 9 mL 3RF NS E11.9 - Type 2 diabetes mellitus without complications Coding Level of Care Code Est Pt Level 4 (72687) Diagnoses Controlled type 2 diabetes mellitus without complication, without long-term current use of insulin E11.9 Diabetes mellitus termite control technician insulin use: without termite control technician use Diabetes mellitus complication status: without complication
[2024-04-22 08:41] LABS: Glucose, Whole Blood 122 mg/dL (60-115)
== END 2024-04-22 08:59 | disposition home or self-care (01) ==
PROVIDERS: PCP Nurse Practitioner Family; Visit Provider Internal Medicine
DX: E11.65 Type 2 diabetes mellitus with hyperglycemia (principal); E11.9 Type 2 diabetes mellitus without complications

== ENCOUNTER → 2024-04-22 08:23 | Outpatient (BNVA) | payer OTHER, SELFPAY | PROVIDERS: PCP Nurse Practitioner Family; Visit Provider Internal Medicine | DX: E11.9 Type 2 diabetes mellitus without complications (principal); Z79.899 Other long term (current) drug therapy | CPT/HCPCS: 82947; 83036 ==

== ENCOUNTER 2024-05-31 07:20 | Day surgery (SDC) | payer OTHER, SELFPAY ==
[2024-05-27 09:15] VITALS: BMI 28.0
--- NOTE | 2024-05-28 09:50 | P.CONAN_ITS ---
Documented by User: Leah Cowart NP 05/28/24 09:50 HPI - Anesthesia Eval Consult details Narrative: 64yo F for Colonoscopy Anesthesia Pre-Procedure Meds Is the patient on any of the following meds?: GLP1/DPP4 PMFSH Active Problems Active Problems: All Active Problems Neuropathy (Acute) Controlled type 2 diabetes mellitus (Acute) Nicotine dependence, cigarettes, uncomplicated (Acute) Diabetes mellitus with hyperglycemia (Acute) Serrated adenoma of colon (Acute) Urinary frequency (Acute) Past Medical History Medical History Newly diagnosed diabetes Diabetes mellitus with hyperglycemia Nicotine dependence, cigarettes, uncomplicated Cervical radiculopathy Family History Family History Mother No problems noted. Father Heart disease Diabetes Surgical History Surgical History History of squamous cell carcinoma excision History of laparoscopic cholecystectomy History of History of colonoscopy Social History Social History Housing: House Alcohol intake: never Patient Tobacco Use Status: Current someday Tobacco user Tobacco use type: Cigarette Cigarettes Per Day: 5 Years Smoked: (onset 18yo, 1/2ppd x 45yrs, 20pyh) e-Cigarette/Vaping Use: Never Used Second Hand Smoke Exposure: No Use of substances other than those prescribed or required for medical reasons: No Have you been hit, kicked, punched, or otherwise hurt by someone within the past year? 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/hazards: No Cognitive needs: No Hearing needs: No Vision needs: Yes Meds Allergies Allergy/AdvReac Type Severity Reaction Status Date / Time Iodinated Contrast Media Allergy Unknown ANAPHYLAXIS Verified 04/22/24 08:29 [IV CONTRAST] morphine [MORPHINE] Allergy Unknown SEVERE Verified 04/22/24 08:29 ITCHING, hives Home Medications ?Medication ?Instructions ?Recorded ?Confirmed ?Last Taken ?Type alpha lipoic acid 200 mg capsule 200 mg PO DAILY 10/20/23 04/22/24 Unknown History cholecalciferol (vitamin D3) 25 25 mcg PO DAILY 10/20/23 04/22/24 Unknown History mcg (1,000 unit) capsule flaxseed oil 1,000 mg capsule 1,000 mg PO DAILY 10/20/23 04/22/24 Unknown History multivitamin 1 tab PO DAILY 10/20/23 04/22/24 Unknown History omeprazole 20 mg capsule,delayed 20 mg PO DAILY 10/20/23 04/22/24 Unknown History release Exam Height,Weight and Vital Signs: Height 5 ft 1 in Weight 67.132 kg Assessment and Plan Assessment Anesthesia Assessment: Chart Reviewed Documented by User: Prema Caicedo MD 05/31/24 08:11 [facility] Past Medical History Medical History Newly diagnosed diabetes Diabetes mellitus with hyperglycemia Nicotine dependence, cigarettes, uncomplicated Cervical radiculopathy Family History Family History Mother No problems noted. Father Heart disease Diabetes Surgical History Surgical History History of squamous cell carcinoma excision History of laparoscopic cholecystectomy History of History of colonoscopy History of Problems with Anesthesia: No Social History Social History Housing: House Alcohol intake: never Patient Tobacco Use Status: Current someday Tobacco user Tobacco use type: Cigarette Cigarettes Per Day: 5 Years Smoked: (onset 18yo, 1/2ppd x 45yrs, 20pyh) e-Cigarette/Vaping Use: Never Used Second Hand Smoke Exposure: No Use of substances other than those prescribed or required for medical reasons: No Have you been hit, kicked, punched, or otherwise hurt by someone within the past year? 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/hazards: No Cognitive needs: No Hearing needs: No Vision needs: Yes Meds Allergies Allergy/AdvReac Type Severity Reaction Status Date / Time Iodinated Contrast Media Allergy Unknown ANAPHYLAXIS Verified 04/22/24 08:29 [IV CONTRAST] morphine [MORPHINE] Allergy Unknown SEVERE Verified 04/22/24 08:29 ITCHING, hives Home Medications ?Medication ?Instructions ?Recorded ?Confirmed ?Last Taken ?Type alpha lipoic acid 200 mg capsule 200 mg PO DAILY 10/20/23 04/22/24 Unknown History cholecalciferol (vitamin D3) 25 25 mcg PO DAILY 10/20/23 04/22/24 Unknown History mcg (1,000 unit) capsule flaxseed oil 1,000 mg capsule 1,000 mg PO DAILY 10/20/23 04/22/24 Unknown History multivitamin 1 tab PO DAILY 10/20/23 04/22/24 Unknown History omeprazole 20 mg capsule,delayed 20 mg PO DAILY 10/20/23 04/22/24 Unknown History release Exam Airway Mallampati Class: II TM Dist: >3cm Neck ROM: Full Loose/Missing/Broken Teeth: Yes and Upper Heart: RRR Lungs: CTA Assessment and Plan Assessment Anesthesia Assessment: Anesthesia Plan Discussed Final Anesthetic Review History of Problems with Anesthesia: No NPO: Yes ASA Class: II Final Preanesthetic Review: Meds/Allgs Chart Reviewed, Consent Obtained/Reviewed and Anes Risks/Benef Reviewed Patient Risk: Low Procedure Risk: Low Anesthetic Plan Anesthetic Plan: MAC: Disposition: Standard PACU
[2024-05-31 07:42] VITALS: BP 138/75; PULSE 110; RESP 16; TEMP 37.2; O2SAT 96
[2024-05-31 07:50] LABS: Glucose, Whole Blood 157 mg/dL (60-115)
--- NOTE | 2024-05-31 07:51 | MHC.SHP ---
Pre-Procedural Eval Section A - 24 Hr Update-Section A only Date of Service: 05/31/24 The patient is an INPATIENT: No The patient has been examined within 24 hours of the surgical procedure. The History & Physical has been completed within 30 days and I have reviewed it.: No Section B - Complete if H&P > 30 days Chief Complaint: Surveillance for colon polyps Relevant Family History (Specify if Yes): No Relevant Social History: Tobacco Use Present Medications: see Short Stay Collaborative assessment Medical History: Significant History (Diabetes mellitus with hyperglycemia Nicotine dependence, cigarettes, uncomplicated Cervical radiculopathy) History of Previous Operations: Relevant previous surgery/procedure and date(s) (History of squamous cell carcinoma excision History of laparoscopic cholecystectomy History of History of colonoscopy) Allergies: Allergies Allergy/AdvReac Type Severity Reaction Status Date / Time Iodinated Contrast Media Allergy Unknown ANAPHYLAXIS Verified 04/22/24 08:29 [IV CONTRAST] morphine [MORPHINE] Allergy Unknown SEVERE Verified 04/22/24 08:29 ITCHING, hives Review of Systems Sugical H&P ROS: Negative: Constitution, Cardiovascular and Respiratory and Yes, Specify: Gastrointestinal (constipation) Exam Surgical H&P Exam: Normal: Heart, Normal: Lungs, Normal: Extremities and Normal: Abdomen Plan Diagnosis/Plan: Unchanged I have reviewed the history and physical and performed a pertinent physical examination on my patient. No changes have occurred unless specified. Time Spent With Patient Time: Total time managing care of this patient today ____ minutes.
[2024-05-31] MEDS: Lactated Ringers 1,000 ML 100 ML IVCONT (07:54)
--- NOTE | 2024-05-31 09:21 | HO.OPN-COLON ---
Colonoscopy Operative Note Operative Note Date of Service: 05/31/24 Narrative: COLONOSCOPY TILL CECUM Pre-op diagnosis: Surveillance for colon polyps. Post-op diagnosis:? Diverticulosis, hemorrhoids Endoscopist:? Varsha Chaidez MD Anesthesia:?MAC Consent: Indications for the procedure and potential complications of bleeding, perforation, reaction to medications and missed diagnosis were discussed with the patient and informed consent was obtained. Instrument: Olympus PCF H 190 L variable stiffness pediatric colonoscope Monitoring: Vital signs and clinical assessment, intermittent blood pressure monitoring, continuous EKG monitoring, Pulse oximetry and Carbon Dioxide monitoring were done throughout the procedure. Please see anesthesia flowsheet. Colon withdrawl time was 25 minutes. Procedure: The patient was placed in the left lateral decubitis position and pre-procedure medications were administered. After a digital rectal examination of the ano-rectum, the video colonoscope was inserted into the rectum and advanced through the colon to the cecum. The colonoscope was slowly withdrawn in a retrograde panoramic fashion and the colon mucosa was carefully examined including a retroflexed view of the rectum. Findings and interventions are described below. Procedure Difficulty: Colon was long and tortuous and there was some loop formation Findings: Terminal Ileum: Not evaluated Cecum: Partially evaluated due to undigested vegetable matter which could not be suctioned Ascending Colon: Normal Transverse Colon: Normal Descending Colon: Normal Sigmoid Colon: Moderate diverticulosis Rectum: Normal Ano-rectum: Small internal hemorrhoids and hypertrophied anal papillae Colon preparation: Good in the Ascending and transverse colon and fair in the cecum and left colon despite copious irrigation. [place] Bowel Preparation Scale Right colon; 1 Transverse colon: 2 Left colon; 1 (0 = Unprepared colon segment with mucosa not seen due to solid stool that cannot be cleared. 1 = Portion of mucosa of the colon segment seen, but other areas of the colon segment not well seen due to staining, residual stool and/or opaque liquid. 2 = Minor amount of residual staining, small fragments of stool and/or opaque liquid, but mucosa of colon segment seen well. 3 = Entire mucosa of colon segment seen well with no residual staining, small fragments of stool or opaque liquid) Impression and Post Procedure Diagnosis: Colonoscopy Findings: No polyps were detected Moderate diverticulosis seen in the sigmoid colon Small hemorrhoids on retroflexed exam. Colon prep was good in the Ascending and transverse colon and fair in the cecum and left colon despite copious irrigation. Plan: Repeat Colonoscopy in 1-2 years due to suboptimal prep in the cecum and left colon (Dulcolax 10 mg daily starting 5 days before next colon appointment) Above findings were reviewed with the patient and relevant handouts were given and the discharge area.
[2024-05-31 09:22] VITALS: BP 108/65; PULSE 95; RESP 18; TEMP 36.5; O2SAT 100
[2024-05-31 09:37] VITALS: BP 121/67; PULSE 97; RESP 18; O2SAT 100
== END 2024-05-31 10:06 | disposition home or self-care (01) ==
PROVIDERS: PCP Nurse Practitioner Family; Visit Provider Internal Medicine Gastroenterology
PROC: 0DJD8ZZ Inspection of Lower Intestinal Tract, Via Natural or Artificial Opening Endoscopic (ICD-10-PCS; CPT 45378; principal; 2024-05-31 08:30)
DX: Z12.11 Encounter for screening for malignant neoplasm of colon (principal); K57.30 Diverticulosis of large intestine without perforation or abscess without bleeding; K64.8 Other hemorrhoids; K62.89 Other specified diseases of anus and rectum; E11.65 Type 2 diabetes mellitus with hyperglycemia; M54.12 Radiculopathy, cervical region; Z85.828 Personal history of other malignant neoplasm of skin; Z79.899 Other long term (current) drug therapy; Z88.5 Allergy status to narcotic agent; Z91.041 Radiographic dye allergy status; Z98.890 Other specified postprocedural states; Z90.49 Acquired absence of other specified parts of digestive tract; F17.210 Nicotine dependence, cigarettes, uncomplicated
CPT/HCPCS: 45378; 82947; J2003; J2704

== ENCOUNTER → 2024-05-31 07:20 | Outpatient (BNV) | payer OTHER, SELFPAY | PROVIDERS: PCP Nurse Practitioner Family; Visit Provider Internal Medicine Gastroenterology | DX: Z12.11 Encounter for screening for malignant neoplasm of colon (principal); Z86.0100 Personal history of colon polyps, unspecified; K57.30 Diverticulosis of large intestine without perforation or abscess without bleeding; K64.8 Other hemorrhoids | CPT/HCPCS: 45378 ==

== ENCOUNTER 2024-07-21 08:20 | Outpatient (AMB) | payer OTHER, SELFPAY ==
[2024-07-21 08:27] VITALS: BP 122/72; PULSE 92; BMI 29.2
--- NOTE | 2024-07-21 08:27 | A.OFFVIS_ITS ---
Vital Signs 07/21/24 08:27 Height 5 ft 1 in Weight 154 lb 5.177 oz BMI 29.2 BP 122/72 Blood Pressure Location Rt brachial Position Sitting Pulse 92 Pulse Source Pulse Oximeter Intake Visit Reasons: DM Intake Note: Patient presents today for a follow-up on Type 2 Diabetes Mellitus: Last Diabetic eye exam was on: DUE? has a coming up appt Last Podiatry exam was on: Patient does not see a Police Lieutenant Most recent HbA1c: DUE ON, 07/21/2024 Random Glucose- 105 mg/dL, Today Manufactured Buildings Supervisor Required: No Accompanied by: Self / Same As Patient Allergies Iodinated Contrast Media [IV CONTRAST] Allergy (Unknown, Verified 07/21/24 08:29) ANAPHYLAXIS morphine [MORPHINE] Allergy (Unknown, Verified 07/21/24 08:29) SEVERE ITCHING, hives HPI Comments Details: This is a 63 year old female presenting for diabetes follow up Medical history: GERD on PPI Today POC A1C 5.7 from 5.5, from 6.4 from 13.1 in 09/2023. Current prescriptions: Ozempic 1mg weekly, stopped metformin due to diarrhea. She is testing once daily with freestyle lite. Does have constipation on the ozempic refractory to senna, colace and miralax-linzess has softened the stools but still going too infrequently. Will double the dose today. She did not do this at last visit Meter download reviewed. TGT 100%. 1x/day. range 117-145 average 136. Micro/macrovascular: Reports bilateral foot uncomfortable tingling. alb/cr (-). On statin, ARB Extensive family history of type 2 diabetes ROS CONSTITUTIONAL: Denies weight loss, fever and chills. HEENT: Denies changes in vision and hearing. RESPIRATORY: Denies SOB and cough. CV: Denies palpitations and CP GI: see HPI : Denies dysuria and urinary frequency. MSK: Denies new myalgia and joint pain. SKIN: Denies rash and pruritus. NEUROLOGICAL: see HPI PSYCHIATRIC: Denies recent changes in mood. PHYSICAL EXAM: GENERAL: Alert and oriented x 3. NAD EYES: EOMI. Anicteric. HENT: Moist mucous membranes. No scleral icterus. No cervical lymphadenopathy. LUNGS: Clear to auscultation bilaterally. CARDIOVASCULAR: Regular rate and rhythm. No murmur. No JVD. ABDOMEN: Soft, non-tender +bs EXTREMITIES: No edema. Non-tender. SKIN: No rashes or lesions. Warm. NEUROLOGIC: No focal neurological deficits. CN II-XII grossly intact PSYCHIATRIC: Cooperative. Appropriate mood and affect [facility] Medical History Newly diagnosed diabetes Diabetes mellitus with hyperglycemia Nicotine dependence, cigarettes, uncomplicated Cervical radiculopathy Surgical History History of squamous cell carcinoma excision History of laparoscopic cholecystectomy History of History of colonoscopy Family History Mother No problems noted. Father Heart disease Diabetes Social History Housing: House Alcohol intake: never Patient Tobacco Use Status: Current someday Tobacco user Tobacco use type: Cigarette Cigarettes Per Day: 5 Years Smoked: (onset 18yo, 1/2ppd x 45yrs, 20pyh) e-Cigarette/Vaping Use: Never Used Second Hand Smoke Exposure: No service: No Current occupational status: employed Current occupation: RN @ [employer] Current occupational exposures/hazards: No Cognitive needs: No Hearing needs: No Vision needs: Yes Physical Exam Vital Signs: Last Vital Signs Pulse 92 07/21/24 08:27 BP 122/72 07/21/24 08:27 BMI result Body Mass Index 29.2 Results AMB Hemoglobin A1c AMB Hemoglobin A1c 5.7 % Last Edit by SANTOSH Lindsay on 07/21/24 08:43 Assessment & Plan Assessment & Plan (1) Controlled type 2 diabetes mellitus: Code(s): E11.9 - Type 2 diabetes mellitus without complications Category: Medical Qualifiers: Diabetes mellitus intermediate insulin use: without intermediate use Diabetes mellitus complication status: without complication Qualified Code(s): E11.9 - Type 2 diabetes mellitus without complications Plan controlled on current medications. Continue ozempic 1mg dose Increase linzess to 290mcg daily Labs ordered-6 month follow up or sooner as needed Orders: Orders Comprehensive Met. Panel Today E11.9 - Type 2 diabetes mellitus without complications, G62.9 - Polyneuropathy, unspecified AMB Hemoglobin A1c Today E11.9 - Type 2 diabetes mellitus without complications Microalbumin, Random (w Creat) Today E11.9 - Type 2 diabetes mellitus without complications, G62.9 - Polyneuropathy, unspecified Lipid Panel Today E11.9 - Type 2 diabetes mellitus without complications, G62.9 - Polyneuropathy, unspecified Hemoglobin A1c Today E11.9 - Type 2 diabetes mellitus without complications, G62.9 - Polyneuropathy, unspecified Medications: New Linzess (linaclotide) 290 mcg PO DAILY 30 caps 11RF NS Refilled Ozempic (semaglutide) 1 mg (0.75 mL) subcut QWEEK 3 mL 11RF NS E11.9 - Type 2 diabetes mellitus without complications Coding Level of Care Code Est Pt Level 4 (35754) Diagnoses Controlled type 2 diabetes mellitus without complication, without long-term current use of insulin E11.9 Diabetes mellitus intermediate insulin use: without intermediate use Diabetes mellitus complication status: without complication
[2024-07-21 08:38] LABS: Glucose, Whole Blood 105 mg/dL (60-115)
== END 2024-07-21 09:02 | disposition home or self-care (01) ==
LOC: HO.ENCR 08:21
PROVIDERS: PCP Nurse Practitioner Family; Visit Provider Internal Medicine
DX: E11.9 Type 2 diabetes mellitus without complications (principal)

== ENCOUNTER → 2024-07-21 08:20 | Outpatient (BNVA) | payer OTHER, SELFPAY | PROVIDERS: PCP Nurse Practitioner Family; Visit Provider Internal Medicine | DX: E11.65 Type 2 diabetes mellitus with hyperglycemia (principal); G62.9 Polyneuropathy, unspecified; Z83.3 Family history of diabetes mellitus; Z79.84 Long term (current) use of oral hypoglycemic drugs | CPT/HCPCS: 82947; 83036 ==

== ENCOUNTER 2024-10-27 08:01 | Outpatient (REF) | payer OTHER, SELFPAY ==
--- OUTSIDE RECORDS SUMMARY | 2024-10-27 09:19 | XMS_ITS | Patient Health Record ---
[facility] Address [address] [place] [address] Care Team Providers Care Manager Of Internal Name Role Phone Lb Ly MD Primary Care Provider Luz Maria Wren Unavailable [phone] Allergies Allergen (clinical drug ingredient) Drug/Non Drug Allergy documented on EMR Reaction Allergy Type Onset Date Status Dye / CT Scan- Anaphylaxis (uncoded) Unknown Allergy Active morphine Morphine itching Drug Allergy Active Reason For Referral No Information Medications Medication SIG (Take, Route, Fr equency, Duration) Notes Start Date End Date Status Work Note . . . Pt to wear athle tic shoes at work due to painful foot condition 02/13/2015 Active Phentermine HCl Acti ve Walking Boot/Pneumatic as directed daily ; Duration: until further notice 02/02/2015 Active MRI . . Right foot without contrast .; Duration: . 03/08/2015 Active Problems No Known Problems Plan Of Treatment Pending Test Test Name Order Date , [id number]/[id number], JOINT/BURSA 0 03/17/2015 Insurance Providers Payer Name Payer Address Payer Phone Subscriber Number Group Number Insured Name Patient Relationship to Insured Coverage Start Date Coverage End Date [facility] [address] [facility] [id number] [phone] [id number] Isabelle Ngo Self - patient is the insured Medical (General) History Medical History History ICD Code Chicken pox Surgical History Surgery Date(Month/Year) section 1979, 1990, 1991, , 1998 wisdom teeth extraction
[2024-10-27 10:15] LABS: MANUAL DIFF FLAG NO
[2024-10-27 10:25] LABS: Hematocrit 40.8 % (37.0-47.0); Hemoglobin 14.3 g/dl (12.0-16.0); Imm Gran Abs Auto 0.02 X10*3/uL (0.00-0.03); Imm Gran Pct Auto 0.2 % (0.0-0.4); Lymphocytes Absolute Auto 3.3 X10*3/uL (1.2-4.9); Mean Corpuscular HGB Conc 35.0 g/dl (31.0-35.0); Mean Corpuscular Hemoglobin 32.1 pg (27.0-33.0); Mean Corpuscular Volume 91.5 fL (80.0-98.0); NRBC Abs Auto 0.000 X10*3/uL (0.0-0.012); NRBC Pct Auto 0.0 /100WBC (0.0-0.2); Platelet Count 292 X10*3/uL (160-400); Red Blood Count 4.46 X10*6/uL (4.20-5.50); White Blood Count 9.1 X10*3/uL (4.8-10.8)
[2024-10-27 10:28] LABS: Appearance Urine Clear; Glucose Urine UA 100 mg/dL (Negative); PH 6.5 (5.0-9.0); Specific Gravity - Urine 1.020 (1.005-1.025)
[2024-10-27 10:41] LABS: Alanine Aminotransferase 26 U/L (0-31); Albumin Level 4.4 g/dL (3.5-5.0); Alkaline Phosphatase 96 U/L (39-117); Anion Gap 9 (12-20); Aspartate Amino Transferase 25 U/L (5-31); Blood Urea Nitrogen 10 mg/dL (9-16); Calcium 9.7 mg/dL (8.4-10.2); Carbon Dioxide 32 mmol/L (22-29); Chloride 106 mmol/L (96-108); Cholesterol 144 mg/dL (<200); Estimated Glomerular Filt Rate > 60; HDL Cholesterol 42 mg/dL (>40); Potassium 4.1 mmol/L (3.3-5.1); Sodium 143 mmol/L (135-145); Total Protein 6.8 g/dL (6.5-8.0); Triglycerides 107 mg/dL (<150)
[2024-10-27 11:02] LABS: Microalbum/Creatinine Ratio Ur 7.4 ug/mg cr (<30)
== END 2024-10-27 08:02 | disposition home or self-care (01) ==
LOC: HO.HMGCLDS 08:01
PROVIDERS: Internal Medicine; PCP Nurse Practitioner Family; Visit Provider Nurse Practitioner Family
DX: Z00.01 Encounter for general adult medical examination with abnormal findings (principal); E11.42 Type 2 diabetes mellitus with diabetic polyneuropathy
CPT/HCPCS: 36415; 80053; 80061; 81003; 82043; 82570; 83036; 84443; 85025; 96127

== ENCOUNTER 2024-10-27 08:01 | Outpatient (AMB) | payer OTHER, SELFPAY ==
--- NOTE | 2024-10-27 08:07 | MHC.PC.OV ---
Vital Signs 10/27/24 08:08 10/27/24 08:37 Height 5 ft 1 in Weight 158 lb BMI 29.9 BP 120/70 Blood Pressure Location Lt brachial Position Sitting Respiration 16 Pulse 101 H 90 Pulse Source Pulse Oximeter Temp 98.2 F Temp Source Oral Pulse Oximetry (%) 95 Oxygen Delivery Method Room Air Intake Visit Reasons: Annual PE- see comments It Application Architect Required: No Accompanied by: Self / Same As Patient Allergies Iodinated Contrast Media (IV CONTRAST) Allergy (Unknown, Verified 10/27/24 08:32) ANAPHYLAXIS morphine (MORPHINE) Allergy (Unknown, Verified 10/27/24 08:32) SEVERE ITCHING, hives Medication List - Last Reconciled 10/27/24 by DUONG Guerrero- alpha lipoic acid 200 mg PO DAILY atorvastatin 20 mg PO BEDTIME cholecalciferol (vitamin D3) 25 mcg PO DAILY flaxseed oil 1,000 mg PO DAILY FreeStyle Lite Meter (blood-glucose meter) Test blood sugar once a day NS FreeStyle Lite Strips (blood sugar diagnostic) check fasting once daily NS gabapentin 100 mg PO BEDTIME lancets (FreeStyle Lancets) Test blood sugar once a day Linzess (linaclotide) 290 mcg PO DAILY NS multivitamin 1 tab PO DAILY omeprazole 20 mg PO DAILY Ozempic (semaglutide) 1 mg (0.75 mL) subcut QWEEK NS pen needle, diabetic (BD Barbara 2nd Gen Pen Needle) As directed Tobacco use date assessed: 10/27/24 Dental Screening Dental Screen Date: 10/27/24 Did you have a dental visit in the last 12 months?: Yes Did you have a dental problem in the last 6 months where you did not have access to dental care?: No Was dental information given to patient?: Patient has dentist HPI Annual PE- see comments HPI Details History of Present Illness The patient is a 64-year-old female presenting for a routine follow-up visit for diabetes management and preventative care. She has a history of Diabetes Mellitus, which is currently well-controlled with medication. She experiences neuropathy primarily at night and is on gabapentin for management. A1c was 5.8 today. The patient is a smoker and is part of a CAT scan program for monitoring due to her smoking history. She has been advised to pursue smoking cessation as part of her preventative care. Health Maintenance - Smoking cessation advised - Participation in CAT scan program for smokers - Mammogram order placed as it is not up to date (pt aware) - Vaccinations recommended and list provided Social History - Smoking: Current smoker, advised to quit Review of Systems - General: Denies fever, chills - Gastrointestinal: Denies abdominal pain, constipation, diarrhea - Neurological: Reports neuropathy primarily at night Physical Exam General: Cooperative, healthy appearing, comfortable, no acute distress and well developed Orientation: Patient oriented x3 Limitations: No limitations Head: Normal to inspection Ears: Hearing grossly normal bilaterally Nose: Normal external nose present Face and sinus: Normal facial exam Eyes: Appearance normal, both eyes and all related structures Neck: Normal visual inspection and Yes full ROM Respiratory: Normal respiratory effort and able to speak in complete sentences. Clear to auscultation bilaterally Cardiovascular: Regular rate and rhythm. Normal S1 and S2 GI: Normal to inspection. Soft to palpation and nontender Skin: No rashes or lesions noted Neuro: Patient oriented x3, some neuropathy mostly at night Extremities: Normal to inspection, feet intact bilat, + sensation with use of monofilament Results Plan Patient was informed and verbally consented to the use of an ambient scribe for clinic note documentation during this visit. 1. Diabetes Mellitus The patient's diabetes is well-controlled with current medication regimen. Continued monitoring and adherence to medication are advised. cont endo follows ups, encouraged labs and eye exam 2. Neuropathy The patient experiences neuropathy primarily at night and is managed with gabapentin. Continued use of gabapentin is recommended to manage symptoms. 3. Smoking The patient is advised to quit smoking and is part of a CAT scan program for monitoring. Smoking cessation is strongly recommended as part of her preventative care. Discussion Notes During the visit, we discussed the importance of maintaining diabetes control and the benefits of smoking cessation. The patient was advised to continue her current medication regimen for diabetes and neuropathy. We also reviewed the need for regular screenings, including a mammogram, and provided a list of recommended vaccinations. Patient Instructions - Continue taking your diabetes and neuropathy medications as prescribed. - Schedule and attend your mammogram appointment. - Follow up with smoking cessation resources and consider quitting smoking. - Obtain recommended vaccinations from your pharmacy. [facility] Medical History Newly diagnosed diabetes Diabetes mellitus with hyperglycemia Nicotine dependence, cigarettes, uncomplicated Cervical radiculopathy Surgical History History of squamous cell carcinoma excision History of laparoscopic cholecystectomy History of History of colonoscopy Family History Mother No problems noted. 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 1. Little interest or pleasure in doing things: not at all 2. Feeling down, depressed, or hopeless: not at all 3. Trouble falling or staying asleep, or sleeping too much: not at all 4. Feeling tired or having little energy: not at all 5. Poor appetite or overeating: not at all 6. Feeling bad about yourself - or that you are a failure or have let yourself or your family down: not at all 7. Trouble concentrating on things, such as reading the newspaper or watching television: not at all 8. Moving or speaking so slowly that other people could have noticed. Or the opposite - being so fidgety or restless that you have been moving around a lot more than usual: not at all 9. Thoughts that you would be better off or of hurting yourself in some way: not at all Total score: 0 Depression Screening Interpretation: Negative Depression Screening Done: Yes 37178 - PHQ-9 Billing: Yes Source: Developed by Drs. Rei Meier, My Barros, Puma Picahrdo and colleagues, with an educational janet from [employer]. Thrive Questionnaire Date Thrive assessed: 10/20/24 I am a: Patient What is your living situation today?: I have a steady place to live Within the past 12 months, did the food you bought not last and you didn't have the money to get more?: Never true Within the past 12 months, did you worry whether your food would run out before you got money to buy more?: Never true Do you have trouble paying for medicines?: No Do you have trouble getting transportation to medical appointments?: No Do you have trouble paying your heating and electricity bill?: No Do you have trouble taking care of your child, family member or friend?: No Do you have trouble with day-to-day activities such as bathing, preparing meals, shopping, managing finances, etc.?: No Are you currently unemployed and looking for a job?: No Are you interested in more education?: No Please select the resources that you would like help with: None Currently or been in a relationship where the following occur: No concerns reported THRIVE Score: 0 AUDIT C Alcohol Use Questionnaire (AUDIT-C) 1. How often do you have a drink containing alcohol?: Never 3. How often do you have six or more drinks on one occasion?: Never Total Score: 0 YARI-7 AMB Questionnaire YARI-7 Date YARI - 7 assessed: 10/27/24 Feeling nervous, anxious, or on edge: 0 = Not at all Not being able to stop or control worryin = Not at all Worrying too much about different things: 0 = Not at all Trouble relaxin = Not at all Being so restless that it is hard to sit still: 0 = Not at all Becoming easily annoyed or irritable: 0 = Not at all Feeling afraid as if something awful might happen: 0 = Not at all Total YARI-7 score (0-4 normal; 5-9 mild; 10-14 moderate; 15-21 severe): 0 Source: Developed by Drs. Rei Meier, My Barros, Puma Pichardo and colleagues, with an educational janet from [employer]. YARI-7 Assessment Billing YARI-7 Assessment Tool: YARI-7 Assessment 51794 Physical exam (Primary Care) Vital Signs: Last Vital Signs Temp 98.2 F 10/27/24 08:08 Pulse 101 H 10/27/24 08:08 Resp 16 10/27/24 08:08 BP 120/70 10/27/24 08:08 Pulse Ox 95 10/27/24 08:08 Oxygen Delivery Method Room Air 10/27/24 08:08 BMI result Body Mass Index 29.9 Tobacco/Smoking Status: Tobacco use Status Tobacco use date assessed 10/27/24 10/27/24 08:15 Patient Tobacco Use Status Current someday Tobacco 10/27/24 08:08 Tobacco use type Cigarette 10/27/24 08:08 e-Cigarette/Vaping Use Never Used 10/27/24 08:08 PHQ-9: PHQ-9 Score PHQ-9: Total score 0 10/27/24 08:32 Depression Screening Interpretation: Negative Thrive Assessment: Date of Thrive Assessment Date Thrive assessed 10/20/24 10/27/24 08:08 Currently or been in a relationship where the following occur: No concerns reported Results AMB Hemoglobin A1c AMB Hemoglobin A1c 5.8 % Last Edit by Reyna Mathews MA on 10/27/24 08:29 Results Reviewed Results Reviewed: Laboratory Last Values Hgb A1c (Clinic) 5.8 % (4.0-6.0) 10/27/24 08:07 Coding Level of Care Code Est Pt Level 3 (53746) Est Pt Prev Care 40-64y(20961) Diagnoses Controlled type 2 diabetes mellitus E11.9 Encounter for routine adult physical exam with abnormal findings Z00. Additional Codes YARI-7 Assessment Billing - YARI-7 Assessment Tool: YARI-7 Assessment 93354 ([id number]) PHQ-9 - 58947 - PHQ-9 Billing: Yes ([id number]) Assessment & Plan Assessment & Plan (1) Controlled type 2 diabetes mellitus: Code(s): E11.9 - Type 2 diabetes mellitus without complications Category: Medical (2) Encounter for routine adult physical exam with abnormal findings: Code(s): Z00.01 - Encounter for general adult medical examination with abnormal findings Category: Medical Plan . Orders: Orders Complete Blood Count Auto Diff Today E11.9 - Type 2 diabetes mellitus without complications, Z00.01 - Encounter for general adult medical examination with abnormal findings Comprehensive [place]. Panel Fast Today E11.9 - Type 2 diabetes mellitus without complications, Z00.01 - Encounter for general adult medical examination with abnormal findings TSH reflex Free T4 Today E11.9 - Type 2 diabetes mellitus without complications, Z00.01 - Encounter for general adult medical examination with abnormal findings AMB Hemoglobin A1c Today Z13.9 - Encounter for screening, unspecified UA CC w/rflx Micro + Cult Today E11.9 - Type 2 diabetes mellitus without complications, Z00.01 - Encounter for general adult medical examination with abnormal findings Lipid Panel Today E11.9 - Type 2 diabetes mellitus without complications, Z00.01 - Encounter for general adult medical examination with abnormal findings Microalbumin, Random (w Creat) Today E11.9 - Type 2 diabetes mellitus without complications MM screening mammo BI Today Z12.31 - Encounter for screening mammogram for malignant neoplasm of breast Medications: Refilled gabapentin 100 mg PO BEDTIME 30 caps 2RF atorvastatin 20 mg PO BEDTIME 90 tabs 1RF
[2024-10-27 08:08] VITALS: BP 120/70; PULSE 101; RESP 16; TEMP 36.8; O2SAT 95; BMI 29.9
[2024-10-27 08:37] VITALS: PULSE 90
== END 2024-10-27 08:44 | disposition home or self-care (01) ==
LOC: HO.HMCC 08:02
PROVIDERS: PCP Nurse Practitioner Family; Visit Provider Nurse Practitioner Family
DX: Z00.00 Encounter for general adult medical examination without abnormal findings (principal); E11.9 Type 2 diabetes mellitus without complications

== ENCOUNTER 2025-01-26 08:29 | Outpatient (AMB) | payer OTHER, SELFPAY ==
--- NOTE | 2025-01-26 08:33 | A.OFFVIS_ITS ---
Vital Signs 01/26/25 08:35 Height 5 ft 1 in Weight 154 lb 5.177 oz BMI 29.2 Blood Pressure Location Rt brachial Position Sitting Pulse 105 H Pulse Source Pulse Oximeter Pulse Oximetry (%) 95 Oxygen Delivery Method Room Air Intake Visit Reasons: DM follow up Intake Note: Patient presents today for a follow-up on Type 2 Diabetes Mellitus: Last Diabetic eye exam was on: DUE? has a coming up appt Last Podiatry exam was on: Patient does not see a Broom Handle Dipper Most recent HbA1c: 5.7%, 01/26/2025 Random Glucose- 130 mg/dL, Today Customer Training Specialist Required: No Accompanied by: Self / Same As Patient Allergies Iodinated Contrast Media (IV CONTRAST) Allergy (Unknown, Verified 01/26/25 08:37) ANAPHYLAXIS morphine (MORPHINE) Allergy (Unknown, Verified 01/26/25 08:37) SEVERE ITCHING, hives HPI Comments Details: This is a 63 year old female presenting for diabetes follow up Medical history: GERD on PPI Today POC A1C 5.7% from 5.7 from 5.5, from 6.4 from 13.1 in 09/2023. Current prescriptions: Ozempic 1mg weekly, Stopped metformin due to diarrhea. She is testing once daily with freestyle lite. Does have constipation on the ozempic refractory to senna, colace and miralax- linzess has softened the stools Micro/macrovascular: Reports bilateral foot uncomfortable tingling. alb/cr (-) 10/2024 On statin, ARB-LDL 81 10/2024 Reports an upcoming eye exam Extensive family history of type 2 diabetes ROS CONSTITUTIONAL: Denies weight loss, fever and chills. HEENT: Denies changes in vision and hearing. RESPIRATORY: Denies SOB and cough. CV: Denies palpitations and CP GI: see HPI : Denies dysuria and urinary frequency. MSK: Denies new myalgia and joint pain. SKIN: Denies rash and pruritus. NEUROLOGICAL: see HPI PSYCHIATRIC: Denies recent changes in mood. PHYSICAL EXAM: GENERAL: Alert and oriented x 3. NAD EYES: EOMI. Anicteric. HENT: Moist mucous membranes. No scleral icterus. No cervical lymphadenopathy. LUNGS: Clear to auscultation bilaterally. CARDIOVASCULAR: Regular rate and rhythm. No murmur. No JVD. ABDOMEN: Soft, non-tender +bs EXTREMITIES: No edema. Non-tender. SKIN: No rashes or lesions. Warm. NEUROLOGIC: No focal neurological deficits. CN II-XII grossly intact PSYCHIATRIC: Cooperative. Appropriate mood and affect [facility] Medical History (Updated 01/26/25 @ 09:08 by Heather Campos MD) Diabetes mellitus with hyperglycemia Nicotine dependence, cigarettes, uncomplicated Cervical radiculopathy Surgical History History of squamous cell carcinoma excision History of laparoscopic cholecystectomy History of History of colonoscopy Family History Mother No problems noted. 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/hazards: No Cognitive needs: No Hearing needs: No Vision needs: Yes Physical Exam Vital Signs: Last Vital Signs Pulse 105 H 01/26/25 08:35 Pulse Ox 95 01/26/25 08:35 Oxygen Delivery Method Room Air 01/26/25 08:35 BMI result Body Mass Index 29.2 Results AMB Hemoglobin A1c AMB Hemoglobin A1c 5.7 % Last Edit by SANTOSH Lindsay on 01/26/25 08:53 Results Reviewed Results Reviewed: Laboratory Last Values Glucose (Clinic) 130 mg/dL (60-115) H 01/26/25 08:41 Assessment & Plan Assessment & Plan (1) Controlled type 2 diabetes mellitus: Code(s): E11.9 - Type 2 diabetes mellitus without complications Category: Medical Plan Controlled type 2 diabetes Continue current medications. Discussed LDL, alb/cr testing Continue linzess No hypoglycemia. She is aware to treat any hypoglycemia by rules of Orders: Orders AMB Hemoglobin A1c Today E11.9 - Type 2 diabetes mellitus without complications Hemoglobin A1c Today E11.9 - Type 2 diabetes mellitus without complications Medications: New linaclotide (Linzess) 145 mcg PO DAILY 90 caps 3RF Refilled Ozempic (semaglutide) 1 mg (0.75 mL) subcut QWEEK 9 mL 3RF NS E11.9 - Type 2 diabetes mellitus without complications Discontinued Linzess (linaclotide) Discontinued Reason: Doctor's Order 290 mcg PO DAILY 30 caps 11RF NS Coding Level of Care Code Est Pt Level 4 (08149) Diagnoses Controlled type 2 diabetes mellitus E11.9
[2025-01-26 08:35] VITALS: PULSE 105; O2SAT 95; BMI 29.2
[2025-01-26 08:47] LABS: Glucose, Whole Blood 130 mg/dL (60-115)
== END 2025-01-26 09:04 | disposition home or self-care (01) ==
LOC: HO.ENCR 08:30
PROVIDERS: PCP Nurse Practitioner Family; Visit Provider Internal Medicine
DX: E11.9 Type 2 diabetes mellitus without complications (principal)

== ENCOUNTER → 2025-01-26 08:29 | Outpatient (BNVA) | payer OTHER, SELFPAY | PROVIDERS: PCP Nurse Practitioner Family; Visit Provider Internal Medicine | DX: E11.9 Type 2 diabetes mellitus without complications (principal); Z79.85 Long-term (current) use of injectable non-insulin antidiabetic drugs | CPT/HCPCS: 82947; 83036 ==

== ENCOUNTER 2025-02-04 09:33 | Outpatient (REF) | payer OTHER, SELFPAY ==
--- NOTE | ~2025-02-04 | CT_ITS ---
EXAMINATION: CT LOW-DOSE SCREENING CHEST WITHOUT CONTRAST CLINICAL INFORMATION: 62-year-old female, current smoker, 47 pack years, lung cancer screening. COMPARISON: 12/12/2023 [facility]. TECHNIQUE: Multidetector volumetric CT imaging of the chest is performed on a Siemens SOMATOM Definition scanner without contrast using low dose technique. Additional 2D coronal and sagittal reformatted images and axial 3D maximum intensity projection (MIP) images are generated on the CT workstation. This CT examination was performed using dose optimization techniques as appropriate, variously including the following: *Automated exposure control *Adjustment of mA and/or kV according to patient size (this includes techniques or standardized protocols for targeted exams where dose is matched to indication/reason for exam; i.e. extremities or head) *Use of iterative reconstruction technique FINDINGS: PULMONARY NODULES: There are no suspicious pulmonary nodules present. LUNGS: The lungs are well expanded. There are no abnormal opacities. There is very mild centrilobular emphysema. The small airways appear normal. The central airways are patent. Minimal linear scarring in the left lower lobe anteriorly, unchanged. MEDIASTINUM: Partially imaged thyroid is normal aside from an anterior right macrocalcification. There is no abnormal mediastinal lymphadenopathy or mass. The aorta is normal in caliber and course. There is mild atheromatous calcification present. The main pulmonary trunk is normal in size. The heart size is normal. There is no pericardial effusion. CORONARY ARTERY CALCIFICATION: None visualized on this study. CHEST WALL/AXILLA: No abnormal lymph nodes or masses. UPPER ABDOMEN: There are stable cysts within the anterior left hepatic lobe. There has been a cholecystectomy. Imaged upper abdominal contents are otherwise normal alignment for noncontrast low dose technique. OSSEOUS STRUCTURES: No suspicious lytic or blastic bone lesions are present. There are mild degenerative changes of the thoracic spine. 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/CT lung screening IMPRESSION: 1. No suspicious pulmonary nodules are present. 2. Minimal centrilobular emphysema. No active lung disease. ASSESSMENT: 1. Lung-RADS Category 1: Negative. There are no nodules or there are definitely benign nodules. 2. Lung-RADS Category S: None. RECOMMENDATION: Continued routine annual low-dose CT lung screening in 1 year is recommended. An order for CT CHEST LOW DOSE CANCER SCREENING ([id number]) can be placed. Electronically signed by: Emanuel Bowling MD 02/04/2025 10:07 AM [facility]
== END 2025-02-04 09:34 | disposition home or self-care (01) ==
LOC: HO.CT 09:33
PROVIDERS: PCP Nurse Practitioner Family; Visit Provider Physician Assistant Medical
DX: F17.210 Nicotine dependence, cigarettes, uncomplicated (principal)
CPT/HCPCS: 71271

== ENCOUNTER → 2025-02-04 09:36 | Outpatient (BNV) | payer OTHER, SELFPAY | PROVIDERS: PCP Nurse Practitioner Family; Visit Provider Radiology Diagnostic Radiology | DX: F17.210 Nicotine dependence, cigarettes, uncomplicated (principal) | CPT/HCPCS: 71271 ==